=== PATIENT | female | born 1955 | race Caucasian/White ===

== ENCOUNTER 2018-10-14 15:07 | Inpatient (IN) | payer MEDICARE, OTHER ==
[~2018-10-14] VITALS: Ht 165.1 cm; Wt 93.0 kg
[~2018-10-14 15:07] MED LIST: AMOXICILLIN500 M1; CO-GESIC 5-5001 EACH PO; CYMBALTA60 MG; FLEXERIL10 MG; HYDROCODONE; MELOXICAM15 MG; NASONEX17 GM; WELLBUTRIN XL300 MG
--- OUTSIDE RECORDS SUMMARY | 2018-10-14 15:11 | XMS REPORT | Summary of Care ---
Author Author [facility] Organization [facility] Address Unknown Phone Unavailable Encounter ANGEL Lam(FIN) [id number] Date(s): 05/16/16 - 05/16/16 [facility] [address] [place] [address] 7 [phone] Discharge Disposition: Home or Self Care Attending Physician: Rodger Echeverria MD Vital Signs No data available for this section Problem List Condition Effective Dates Status Health Status Informant Anxiety(Confirmed) Active Cervical Active radiculopathy(Confir med) Cervical Active spondylosis(Confirme d) Knee Resolved injury(Confirmed) Knee pain(Confirmed) Active Neck pain(Confirmed) Active Numbness(Confirmed)1 Active Obesity(Confirmed) Active Foraminal stenosis Active of cervical region(Confirmed) Tingling(Confirmed)2 Active 1both arms 2bil arms Allergies, Adverse Reactions, Alerts Substance Reaction Severity Status NKDA Active Medications No data available for this section Results No data available for this section Immunizations No data available for this section Procedures Procedure Date Related Diagnosis Body Site Back fusion Cervical spinal fusion Repair of meniscus Social History Social History Type Response Alcohol Current, Type Liquor. Frequency: 1-2 times per month. Smoking Status Current every day smoker; Type: Cigarettes; Tobacco use per day: 10; Lives with someone who smokes; Cigarette Smoking Last 365 Days No; Reg Smoking Cessation Counseling No1 1Smoked for 30 years and still do. Always a pack or less a day Assessment and Plan No data available for this section
--- OUTSIDE RECORDS SUMMARY | 2018-10-14 15:11 | XMS REPORT | Continuity of Care Document ---
Author Author [facility] Interface Address Unknown Phone Unavailable Problems Problem Status Onset Date Classification Date Reported Comments Source M48.02 - "SPINAL STENOSIS, CERVICAL ART Active 05/02/2016 [facility] [place] M48.02,M50.20 Active 05/02/2016 [facility] Anxiety Active Problem 05/23/2016 [facility] [place] Cervical radiculopathy Active Problem 05/23/2016 [facility] [place] Cervical spondylosis Active Problem 05/23/2016 [facility] [place] Knee injury Resolved Problem 05/23/2016 [facility] [place] Knee pain Active Problem 05/23/2016 [facility] [place] Neck pain Active Problem 05/23/2016 [facility] [place] Numbness<sup>1</sup> Active Problem 05/23/2016 both arms [facility] [place] Obesity Active Problem 05/23/2016 [facility] [place] Foraminal stenosis of cervical region Active Problem 05/23/2016 [facility] [place] Tingling<sup>2</sup> Active Problem 05/23/2016 kristian arms [facility] [place] SPINAL STENOSIS, CERVICAL REGION Active [facility] Medications Medication Details Route Status Patient Instructions Ordering Provider Order Date Source neostigmine (ANES) Route: IV, Drug form: INJ, ONCE, Stop date: 05/20/16 12:00:00 CDT Inactive 05/20/2016 [facility] glycopyrrolate (ANES) Route: IV, Drug form: INJ, ONCE, Stop date: 05/20/16 12:00:00 CDT Inactive 05/20/2016 [facility] ketOROLAC (ANES) IV, ONCE Inactive 05/20/2016 [facility] ondansetron (ANES) Route: IV, Drug form: INJ, ONCE, Stop date: 05/20/16 11:52:00 CDT Inactive 05/20/2016 [facility] morphine Sulfate (ANES) Route: IV, Drug form: INJ, ONCE, Stop date: 05/20/16 11:47:00 CDT Inactive 05/20/2016 [facility] ceFAZolin (ANES) Route: IV, Drug form: INJ, ONCE, Stop date: 05/20/16 11:37:00 CDT Inactive 05/20/2016 [facility] phenylephrine (ANES) Route: IV, Drug form: INJ, ONCE, Stop date: 05/20/16 11:32:00 CDT Inactive 05/20/2016 [facility] lidocaine (ANES) Route: IV, Drug form: INJ, ONCE, Stop date: 05/20/16 11:12:00 CDT Inactive 05/20/2016 [facility] rocuronium (ANES) Route: IV, Drug form: INJ, ONCE, Stop date: 05/20/16 11:12:00 CDT Inactive 05/20/2016 [facility] propofol (ANES) Route: IV, Drug form: INJ, ONCE, Stop date: 05/20/16 11:07:00 CDT Inactive 05/20/2016 [facility] midazolam (ANES) Route: IV, Drug form: SOLN, ONCE, Stop date: 05/20/16 10:47:00 CDT Inactive 05/20/2016 [facility] fentaNYL (ANES) Route: IV, Drug form: INJ, ONCE, Stop date: 05/20/16 10:47:00 CDT Inactive 05/20/2016 [facility] LR 1000 mL INJ (ANES) Route: IV, Total Volume: 1,000, Start date: 05/20/16 10:12:00 CDT, Stop date: 05/20/16 11:12:00 CDT Inactive 05/20/2016 [facility] Naloxone 0.1 mg, 0.25 mL, Route: SUB-Q, Drug form: INJ, Q6H, Dosing Weight 91.364, kg, PRN Itching, Start date: 05/20/16 9:58:00 CDT, Stop date: 05/20/16 23:00:00 CDTNotes: Same as Narcan Inactive 05/20/2016 [facility] Meperidine 12.5 mg, 0.5 mL, Route: IVP, Drug form: INJ, Q30Min, Dosing Weight 91.364, kg, PRN Other -See Comment, For shivering, Start date: 05/20/16 9:58:00 CDT, Duration: 2 doses or times, Stop date: 05/20/16 23 :00:00 CDTNotes: (Same as: Demerol) "Use Precaution in Elderly, Seizure disorders, and Renal impairment" Inactive 05/20/2016 [facility] Albuterol 0.83 MG/ML Inhalant Solution 2.49 mg, 0.5 mL, Route: NEB, Drug form: SOLN, Q20Min, Dosing Weight 91.364, kg, PRN Wheezing, Priority: STAT, Start date: 05/20/16 9:58:00 CDT, Stop date: 05/20/16 23:00:00 CDTNotes: SEE RT DOCUMENTATION MEDICATION WASTE Product Size: 2.5 mg Product Wasted: ___ mg Inactive 05/20/2016 [facility] Diphenhydramine 12.5 mg, 0.25 mL, Route: IVP, Drug form: INJ, Q6H, Dosing Weight 91.364, kg, PRN Itching, Start date: 05/20/16 9:58:00 CDT, Stop date: 05/20/16 23:00:00 CDTNotes: (Same as: Benadryl) Inactive 05/20/2016 [facility] Promethazine 6.25 mg, 0.25 mL, Route: IVPB, ONCE, Dosing Weight 91.364, kg, PRN Nausea & Vomiting, Start date: 05/20/16 9:58:00 CDTNotes: Do not give IV push. (Same as: Phenergan) Inactive 05/20/2016 [facility] Ondansetron 4 mg, 2 mL, Route: IVP, Drug form: INJ, ONCE, Dosing Weight 91.364, kg, PRN Nausea & Vomiting, Start date: 05/20/16 9:58:00 CDTNotes: (Same as: Zofran) MEDICATION WASTE Product Size: 4 mg Product Wasted: ___ mg Inactive 05/20/2016 [facility] Morphine 4 mg, 1 mL, Route: IVP, Drug form: INJ, Q5Min, Dosing Weight 91.364, kg, PRN Pain Score 7-10, Start date: 05/20/16 9:58:00 CDT, Duration: 3 doses or times, Stop date: 05/20/16 23:00:00 CDTNotes: (Same as:MORPhine Sulfate) Inactive 05/20/2016 [facility] Flumazenil 0.2 mg, 2 mL, Route: IVP, Drug form: INJ, PRN, Dosing Weight 91.364, kg, PRN Benzodiazepine Reversal, Initial dose, Start date: 05/20/16 9:58:00 CDT, Stop date: 05/20/16 23:00:00 CDTNotes: (Same as: Romazicon) Inactive 05/20/2016 [facility] Calcium Chloride 0.0014 MEQ/ML / Potassium Chloride 0.004 MEQ/ML / Sodium Chloride 0.103 MEQ/ML / Sodium Lactate 0.028 MEQ/ML Injectable Solution 1,000 mL, Rate: 125 ml/hr, Infuse over: 8 hr, Route: IV, Dosing Weight 91.364 kg, Total Volume: 1,000, Start date: 05/20/16 9:58:00 CDT, Duration: 30 day, Stop date: 06/19/16 9:57:00 CDT Inactive 05/20/2016 [facility] Acetaminophen 1,000 mg, 100 mL, Route: IVPB, Drug form: INJ, ONCE, Dosing Weight 91.364, kg, PRN Pain Score 1-3, Start date: 05/20/16 9:58:00 CDT, Duration: 1 doses or times, Stop date: Limited # of timesNotes: In fuse over 15 minutes Do not exceed 4gm/day of acetaminophen MEDICATION WASTE Product Size: 1000 mg Product Wasted: ___ mg Inactive 05/20/2016 [facility] Labetalol 10 mg, 2 mL, Route: IVP, Drug form: INJ, Q5Min, Dosing Weight 91.364, kg, PRN Elevated BP, Start date: 05/20/16 9:58:00 CDT, Duration: 5 doses or times, Stop date: 05/20/16 23:00:00 CDTNotes: (Same as: Normodyne, Trandate) Push over 2 minutes Give bolus over 2-3 minutes. Inactive 05/20/2016 [facility] Hydralazine 10 mg, 0.5 mL, Route: IVP, Drug form: INJ, Q20Min, Dosing Weight 91.364, kg, PRN Elevated BP, Start date: 05/20/16 9:58:00 CDT, Duration: 2 doses or times, Stop date: 05/20/16 23:00:00 CDTNotes: (Same as: Apresoline) Push over 5 minutes Inactive 05/20/2016 [facility] Phenergan 25 mg, 50 mL, Route: IVPB, Drug form: SOLN, Q4H, Dosing Weight 91.364, kg, PRN Nausea & Vomiting, If N/V refractory to Zofran and Reglan, patient may receive Phenergan IVP per Dr. Rascon, Start date: 05/20/16 9:34:00 CDT, Duration: 30 day, Stop date:... Inactive 05/20/2016 [facility] Lactated Ringers 1,000 mL 1,000 mL, Rate: 100 ml/hr, Infuse over: 10 hr, Route: IV, Dosing Weight 91.364 kg, Total Volume: 1,000, Start date: 05/20/16 6:23:00 CDT, Duration: 30 day, Stop date: 06/19/16 6:22:00 CDT Inactive 05/20/2016 [facility] ceFAZolin 2 gm, 50 mL, Route: IVPB, Drug form: INJ, PRE OP, Start date: 05/20/16 5:00:00 CDT, Duration: 1 doses or times Inactive 05/20/2016 [facility] Aspirin 81 MG Enteric Coated Tablet 81 mg=1 tab, PO, Daily, # 90 tab, 3 Refill(s) No Longer Active 05/15/2016 [facility] Phentermine Hydrochloride 37.5 MG Oral Tablet 37.5 mg=1 tab, PO, Daily, # 30 tab, 0 Refill(s) Active 05/15/2016 [facility] Allergies, Adverse Reactions, Alerts Substance Category Reaction Severity Reaction type Status Date Reported Comments Source Immunizations Immunization Date Given Site Status Last Updated Comments Source Results Order Name Results Value Reference Range Date Interpretation Comments Source HEMATOLOGY WBC 10.6 K/CMM 3.7 - 10.4 05/20/2016 [facility] HEMATOLOGY RBC 4.25 M/CMM 4.20 - 5.40 05/20/2016 [facility] HEMATOLOGY MCV 90.5 fL 80.0 - 98.0 05/20/2016 [facility] MCHC 33.8 g/dL 32.0 - 36.0 05/20/2016 [facility] Hct 38.4 % 36.0 - 48.0 05/20/2016 [facility] MCH 30.6 pg 27.0 - 31.0 05/20/2016 [facility] Hgb 13.0 g/dL 12.0 - 16.0 05/20/2016 [facility] MPV 7.1 fL 7.4 - 10.4 05/20/2016 [facility] RDW 15.2 % 11.5 - 14.5 05/20/2016 [facility] Platelet 424 K/CMM 133 - 450 05/20/2016 [facility] Lymphocytes 27.7 % 20.0 - 40.0 05/20/2016 [facility] Segs 57.5 % 45.0 - 75.0 05/20/2016 [facility] Monocytes 8.1 % 2.0 - 12.0 05/20/2016 [facility] Segs-Bands # 6.1 K/CMM 1.5 - 8.1 05/20/2016 [facility] Eosinophils 6.6 % 0.0 - 4.0 05/20/2016 [facility] Basophils 0.1 % 0.0 - 1.0 05/20/2016 [facility] Eosinophils # 0.7 K/CMM 0.0 - 0.5 05/20/2016 [facility] Lymphocytes # 2.9 K/CMM 1.0 - 5.5 05/20/2016 [facility] Monocytes # 0.9 K/CMM 0.0 - 0.8 05/20/2016 [facility] Spine cervical wo contrast CT Spine cervical wo contrast CT EXAM: CT CERVICAL SPINE WITHOUT CONTRAST DATE: 05/02/2016 4:05 PM CDT INDICATION: M99.81 Foraminal stenosis of cervical region COMPARISON: None available TECHNIQUE: Volumetric acquisition of the cervical spine is obtained without contrast. 2mm axial, sagittal and coronal reconstructions are provided. DLP: 494 mGy-cm DISCUSSION: The cervical spine is well imaged from craniocervical junction through T1. No fracture, acute malalignment or other acute bony abnormality of the cervical spine is identified. No soft tissue abnormality is identified. Disc levels, spinal canal, neural foramina: Craniocervical junction: No stenosis C1-C2: No subluxation, ligamentous pannus formation, or stenosis C2-C3: Intervertebral disc height is maintained. There is left facet and uncinate hypertrophy. Central canal is patent. Neural foramina are patent. C3-C4: Severe facet of hypertrophy. 4 mm anterolisthesis of C3 relative to C4. Loss of intervertebral disc height with moderate annular pseudobulge. Central canal is narrowed to 6 mm. Neural foramina are severely narrowed. C4-C5: Severe right facet of hypertrophy. 3 mm anterolisthesis of C4 relative to C5. Loss of intervertebral disc height with moderate pseudobulge. Central canal measures 8 mm. Neural foramina are moderately narrowed. C5-C6: Loss in vertebral disc height with circumferential disc osteophyte complex. There is bilateral uncinate hypertrophy. Facets are mildly enlarged. Central canal measures 10 mm. Neural foramina are patent. C6-C7: Loss of intervertebral disc height with circumferential disc osteophyte complex. There is left greater than right facet hypertrophy. Central canal measures 9 mm. There is moderate stenosis of the neural foramina bilaterally. C7-T1: Intervertebral disc height is maintained. Posterior elements are normal. There is no stenosis. IMPRESSION: 1. Severe C3-C4 C5 facet hypertrophy was associated spondylolisthesis and spinal stenosis. 2. There is severe bilateral C3-C4 neural foramen stenosis. 3. Please see additional comments above 05/16/2016 - - Read by: Vincent Leonard MD Dictated Date/time: 05/16/16 15:30 Electronically Signed by: Vincent Leonard MD 05/16/16 17:13 FINAL REPORT [facility] BLOOD BANK RESULTS Antibody Scrn Negative (05/15/16 1:41 PM) 05/15/2016 [facility] BLOOD BANK RESULTS ABO/Rh B POS 05/15/2016 [facility] CHEM PANEL eGFR 74 mL/min/1.73m2 05/15/2016 Result Comment: The eGFR is calculated using the CKD-EPI formula. In most young, healthy individuals the eGFR will be >90 mL/min/1.73m2. The eGFR declines with age. An eGFR of 60-89 may be normal in some populations, particularly the elderly, for whom the CKD-EPI formula has not been extensively validated. Use of the eGFR is not recommended in the following populations: Individuals with unstable creatinine concentrations, including patients and those with serious co-morbid conditions. Patients with extremes in muscle mass or diet. The data above are obtained from the National Kidney Disease Education Program (NKDEP) which additionally recommends that when the eGFR is used in patients with extremes of body mass index for purposes of drug dosing, the eGFR should be multiplied by the estimated BMI. [facility] CHEM PANEL Sodium Lvl 139 meq/L 135 - 145 05/15/2016 [facility] CHEM PANEL Creatinine Lvl 0.85 mg/dL 0.50 - 1.40 05/15/2016 [facility] CHEM PANEL Chloride Lvl 105 meq/L 95 - 109 05/15/2016 [facility] CHEM PANEL Potassium Lvl 4.3 meq/L 3.5 - 5.1 05/15/2016 [facility] CHEM PANEL Calcium Lvl 9.0 mg/dL 8.5 - 10.5 05/15/2016 [facility] CHEM PANEL CO2 28 meq/L 24 - 32 05/15/2016 [facility] CHEM PANEL BUN 9 mg/dL 7 - 22 05/15/2016 [facility] CHEM PANEL Glucose Lvl 102 mg/dL 70 - 99 05/15/2016 [facility] CHEM PANEL AGAP 10.3 meq/L 10.0 - 20.0 05/15/2016 [facility] HEMATOLOGY Eosinophils # 1.0 K/CMM 0.0 - 0.5 05/15/2016 [facility] HEMATOLOGY Basophils # 0.2 K/CMM 0.0 - 0.2 05/15/2016 [facility] HEMATOLOGY Monocytes # 1.1 K/CMM 0.0 - 0.8 05/15/2016 [facility] HEMATOLOGY Lymphocytes 30.3 % 20.0 - 40.0 05/15/2016 [facility] HEMATOLOGY Segs 54.5 % 45.0 - 75.0 05/15/2016 [facility] HEMATOLOGY Eosinophils 6.4 % 0.0 - 4.0 05/15/2016 [facility] HEMATOLOGY Monocytes 7.6 % 2.0 - 12.0 05/15/2016 [facility] HEMATOLOGY Lymphocytes # 4.6 K/CMM 1.0 - 5.5 05/15/2016 [facility] HEMATOLOGY Basophils 1.2 % 0.0 - 1.0 05/15/2016 [facility] HEMATOLOGY Segs-Bands # 8.3 K/CMM 1.5 - 8.1 05/15/2016 [facility] HEMATOLOGY PTT 26.4 s 22.9 - 35.8 05/15/2016 [facility] HEMATOLOGY PT 11.4 s 12.0 - 14.7 05/15/2016 [facility] HEMATOLOGY INR 0.80 0.85 - 1.17 05/15/2016 [facility] HEMATOLOGY MPV 7.1 fL 7.4 - 10.4 05/15/2016 [facility] MCH 30.6 pg 27.0 - 31.0 05/15/2016 [facility] HEMATOLOGY RDW 15.5 % 11.5 - 14.5 05/15/2016 [facility] HEMATOLOGY MCHC 33.1 g/dL 32.0 - 36.0 05/15/2016 [facility] HEMATOLOGY Platelet 496 K/CMM 133 - 450 05/15/2016 [facility] HEMATOLOGY Hct 40.2 % 36.0 - 48.0 05/15/2016 [facility] MCV 92.5 fL 80.0 - 98.0 05/15/2016 [facility] WBC 15.1 K/CMM 3.7 - 10.4 05/15/2016 [facility] Hgb 13.3 g/dL 12.0 - 16.0 05/15/2016 [facility] RBC 4.34 M/CMM 4.20 - 5.40 05/15/2016 [facility] URINE AND STOOL Micro? Not Indicated *NA* (05/15/16 1:41 PM) 05/15/2016 [facility] URINE AND STOOL UA Leuk Est Negative (05/15/16 1:41 PM) Negative 05/15/2016 [facility] URINE AND STOOL UA Urobilinogen 0.2 EU/dL 0.1 - 1.0 05/15/2016 [facility] URINE AND STOOL UA Bili Negative *NA* (05/15/16 1:41 PM) Negative 05/15/2016 [facility] URINE AND STOOL UA Nitrite Negative (05/15/16 1:41 PM) Negative 05/15/2016 [facility] URINE AND STOOL UA Blood Negative (05/15/16 1:41 PM) Negative 05/15/2016 [facility] URINE AND STOOL UA Ketones Negative mg/dL Negative mg/dL 05/15/2016 [facility] URINE AND STOOL UA Spec Grav 1.010 <=1.030 05/15/2016 [facility] URINE AND STOOL UA pH 6.0 5.0 - 8.0 05/15/2016 [facility] URINE AND STOOL UA Color Yellow *NA* (05/15/16 1:41 PM) Yellow 05/15/2016 [facility] URINE AND STOOL UA Turbidity Clear (05/15/16 1:41 PM) Clear 05/15/2016 [facility] URINE AND STOOL UA Glucose Negative mg/dL Negative mg/dL 05/15/2016 [facility] URINE AND STOOL UA Protein Negative mg/dL Negative mg/dL 05/15/2016 [facility] Vital Signs Vital Sign Value Date Comments Source Heart Rate 86 05/20/2016 [facility] Respitory Rate 16 05/20/2016 [facility] Systolic (mm Hg) 110 05/20/2016 [facility] Diastolic (mm Hg) 65 05/20/2016 [facility] Respitory Rate 16 05/20/2016 [facility] Heart Rate 81 05/20/2016 [facility] Systolic (mm Hg) 114 05/20/2016 [facility] Diastolic (mm Hg) 63 05/20/2016 [facility] Respitory Rate 16 05/20/2016 [facility] Systolic (mm Hg) 109 05/20/2016 [facility] Diastolic (mm Hg) 57 05/20/2016 [facility] Heart Rate 77 05/20/2016 [facility] Height 165.1 cm 05/15/2016 [facility] BMI Calculated 33.52 05/15/2016 [facility] Weight 91.364 05/15/2016 [facility] Encounters Location Location Details Encounter Type Encounter Number Reason For Visit Attending Provider ADM Date DC Date Status Source [facility] [place] Out[facility] Diag Services [id number] Rodger Rascon Jr 05/16/2016 05/17/2016 [facility] [place] Out[facility] [id number] RODGER RASCON JR 05/20/2016 Active [facility] Day Surgery [id number] Rodger Rascon Jr 05/20/2016 05/20/2016 [facility] Outpatient [id number] RODGER RASCON JR 06/03/2016 [facility] Outpatient [id number] RODGER RASCON JR 06/26/2016 [facility] Outpatient [id number] RODGER RASCON JR 08/07/2016 [facility] Procedures Procedure Code Date Perfomer Comments Source Back fusion [id number] [facility] [place] Cervical spinal fusion [id number] [facility] [place] Repair of meniscus [id number] [facility] [place] Back fusion [id number] [facility] Cervical spinal fusion [id number] [facility] Repair of meniscus [id number] [facility]
--- OUTSIDE RECORDS SUMMARY | 2018-10-14 15:12 | XMS REPORT | Summary of Care ---
Author Author [facility] Organization [facility] Address Unknown Phone Unavailable Encounter ANGEL Lam(LINDA) [id number] Date(s): 05/20/16 - 05/20/16 [facility] [address] [place] [address]- Discharge Disposition: Home or Self Care Attending Physician: Rodger Echeverria MD Admitting Physician: Rodger Echeverria MD Referring Physician: Rodger Echeverria MD Vital Signs 1 2 3 Most recent to oldest [Reference Range]: 165.1 cm (05/15/16 1:07 PM) Height 110/65 mmHg (05/20/16 2:40 PM) 114/63 mmHg (05/20/16 2:10 PM) 109/57 mmHg (05/20/16 1:40 PM) Blood Pressure [90-140/60-90 mmHg] 16 BRMIN (05/20/16 2:40 PM) 16 BRMIN (05/20/16 2:10 PM) 16 BRMIN (05/20/16 1:40 PM) Respiratory Rate [14-20 BRMIN] 86 bpm (05/20/16 2:40 PM) 81 bpm (05/20/16 2:10 PM) 77 bpm (05/20/16 1:40 PM) Peripheral Pulse Rate [60-100 bpm] 91.364 kg (05/15/16 1:07 PM) Weight 33.52 m2 (05/15/16 1:07 PM) Body Mass Index Problem List Condition Effective Dates Status Health Status Informant Anxiety(Confirmed) Active Cervical Active radiculopathy(Confir med) Cervical Active spondylosis(Confirme d) Knee Resolved injury(Confirmed) Knee pain(Confirmed) Active Neck pain(Confirmed) Active Numbness(Confirmed)1 Active Obesity(Confirmed) Active Foraminal stenosis Active of cervical region(Confirmed) Tingling(Confirmed)2 Active 1both arms 2bil arms Allergies, Adverse Reactions, Alerts Substance Reaction Severity Status NKDA Active Medications ANES acetaminophen 1,000 mg, 100 mL, Route: IVPB, Drug form: INJ, ONCE, Dosing Weight 91.364, kg, P RN Pain Score 1-3, Start date: 05/20/16 9:58:00 CDT, Duration: 1 doses or times, Stop date: Limited # of times Notes: Infuse over 15 minutesDo not exceed 4gm/day of acetaminophen MEDICAT ION WASTE Product Size: 1000 mgProduct Wasted: ___ mg Start Date: 05/20/16 Stop Date: 05/20/16 Status: Discontinued ANES albuterol 0.083% inhalation solution 2.49 mg, 0.5 mL, Route: NEB, Drug form: SOLN, Q20Min, Dosing Weight 91.364, kg, PRN Wheezing, Priority: STAT, Start date: 05/20/16 9:58:00 CDT, Stop date: 05/20 23:00:00 CDT Notes: SEE RT DOCUMENTATION MEDICATION WASTE Product Size: 2.5 mgProduc t Wasted: ___ mg Start Date: 05/20/16 Stop Date: 05/20/16 Status: Discontinued ANES diphenhydrAMINE 12.5 mg, 0.25 mL, Route: IVP, Drug form: INJ, Q6H, Dosing Weight 91.364, kg, PRN Itching, Start date: 05/20/16 9:58:00 CDT, Stop date: 05/20/16 23:00:00 CDT Notes: (Same as: Benadryl) Start Date: 05/20/16 Stop Date: 05/20/16 Status: Discontinued ANES flumazenil 0.2 mg, 2 mL, Route: IVP, Drug form: INJ, PRN, Dosing Weight 91.364, kg, PRN Josh zodiazepine Reversal, Initial dose, Start date: 05/20/16 9:58:00 CDT, Stop date: 05/20/16 23:00:00 CDT Notes: (Same as: Romazicon) Start Date: 05/20/16 Stop Date: 05/20/16 Status: Discontinued ANES hydrALAZINE 10 mg, 0.5 mL, Route: IVP, Drug form: INJ, Q20Min, Dosing Weight 91.364, kg, PRN Elevated BP, Start date: 05/20/16 9:58:00 CDT, Duration: 2 doses or times, Stop date: 05/20/16 23:00:00 CDT Notes: (Same as: Apresoline)Push over 5 minutes Start Date: 05/20/16 Stop Date: 05/20/16 Status: Discontinued ANES labetalol 10 mg, 2 mL, Route: IVP, Drug form: INJ, Q5Min, Dosing Weight 91.364, kg, PRN El evated BP, Start date: 05/20/16 9:58:00 CDT, Duration: 5 doses or times, Stop da te: 05/20/16 23:00:00 CDT Notes: (Same as: Normodyne, Trandate)Push over 2 minutes Give bolus over 2-3 mi nutes. Start Date: 05/20/16 Stop Date: 05/20/16 Status: Discontinued ANES meperidine 12.5 mg, 0.5 mL, Route: IVP, Drug form: INJ, Q30Min, Dosing Weight 91.364, kg, P RN Other -See Comment, For shivering, Start date: 05/20/16 9:58:00 CDT, Duration : 2 doses or times, Stop date: 05/20/16 23:00:00 CDT Notes: (Same as: Demerol) "Use Precaution in Elderly, Seizure disorders, and Re nal impairment" Start Date: 05/20/16 Stop Date: 05/20/16 Status: Discontinued ANES morphine Sulfate 4 mg, 1 mL, Route: IVP, Drug form: INJ, Q5Min, Dosing Weight 91.364, kg, PRN Khoi n Score 7-10, Start date: 05/20/16 9:58:00 CDT, Duration: 3 doses or times, Stop date: 05/20/16 23:00:00 CDT Notes: (Same as:MORPhine Sulfate) Start Date: 05/20/16 Stop Date: 05/20/16 Status: Discontinued ANES morphine Sulfate 2 mg, 1 mL, Route: IVP, Drug form: INJ, Q5Min, Dosing Weight 91.364, kg, PRN Khoi n Score 4-6, Start date: 05/20/16 9:58:00 CDT, Duration: 5 doses or times, Stop date: 05/20/16 23:00:00 CDT Notes: (Same as:MORPhine Sulfate) Start Date: 05/20/16 Stop Date: 05/20/16 Status: Discontinued ANES naloxone 0.1 mg, 0.25 mL, Route: SUB-Q, Drug form: INJ, Q6H, Dosing Weight 91.364, kg, MN N Itching, Start date: 05/20/16 9:58:00 CDT, Stop date: 05/20/16 23:00:00 CDT Notes: Same as Narcan Start Date: 05/20/16 Stop Date: 05/20/16 Status: Discontinued ANES naloxone 0.4 mg, 1 mL, Route: IVP, Drug form: INJ, Q2MIN, Dosing Weight 91.364, kg, PRN N arcotic Reversal, Start date: 05/20/16 9:58:00 CDT, Duration: 8 doses or times, Stop date: 05/20/16 23:00:00 CDT Notes: Same as Narcan Start Date: 05/20/16 Stop Date: 05/20/16 Status: Discontinued ANES ondansetron 4 mg, 2 mL, Route: IVP, Drug form: INJ, ONCE, Dosing Weight 91.364, kg, PRN Naus ea & Vomiting, Start date: 05/20/16 9:58:00 CDT Notes: (Same as: Ethan) MEDICATION WASTE Product Size: 4 mgProduct Was gutierrez: ___ mg Start Date: 05/20/16 Stop Date: 05/20/16 Status: Discontinued ANES promethazine + sodium chloride 0.9% INJ 50 mL 6.25 mg, 0.25 mL, Route: IVPB, ONCE, Dosing Weight 91.364, kg, PRN Nausea & Vomiting, Start date: 05/20/16 9:58:00 CDT Notes: Do not give IV push. (Same as: Phenergan) Start Date: 05/20/16 Stop Date: 05/20/16 Status: Discontinued aspirin 81 mg tablet, enteric coated 81 mg=1 tab, PO, Daily, # 90 tab, 3 Refill(s) Start Date: 05/15/16 Stop Date: 05/20/16 Status: Discontinued ceFAZolin 2 gm, 50 mL, Route: IVPB, Drug form: INJ, PRE OP, Start date: 05/20/16 5:00:00 C DT, Duration: 1 doses or times Start Date: 05/20/16 Stop Date: 05/20/16 Status: Completed ceFAZolin (ANES) Route: IV, Drug form: INJ, ONCE, Stop date: 05/20/16 11:37:00 CDT Start Date: 05/20/16 Stop Date: 05/20/16 Status: Completed fentaNYL (ANES) Route: IV, Drug form: INJ, ONCE, Stop date: 05/20/16 10:47:00 CDT Start Date: 05/20/16 Stop Date: 05/20/16 Status: Completed glycopyrrolate (ANES) Route: IV, Drug form: INJ, ONCE, Stop date: 05/20/16 12:00:00 CDT Start Date: 05/20/16 Stop Date: 05/20/16 Status: Completed ketOROLAC (ANES) IV, ONCE Start Date: 05/20/16 Stop Date: 05/20/16 Status: Completed Lactated Ringers 1,000 mL 1,000 mL, Rate: 100 ml/hr, Infuse over: 10 hr, Route: IV, Dosing Weight 91.364 k g, Total Volume: 1,000, Start date: 05/20/16 6:23:00 CDT, Duration: 30 day, Stop date: 06/19/16 6:22:00 CDT Start Date: 05/20/16 Stop Date: 05/20/16 Status: Discontinued Lactated Ringers 1,000 mL 1,000 mL, Rate: 125 ml/hr, Infuse over: 8 hr, Route: IV, Dosing Weight 91.364 kg , Total Volume: 1,000, Start date: 05/20/16 9:58:00 CDT, Duration: 30 day, Stop date: 06/19/16 9:57:00 CDT Start Date: 05/20/16 Stop Date: 05/20/16 Status: Discontinued lidocaine (ANES) Route: IV, Drug form: INJ, ONCE, Stop date: 05/20/16 11:12:00 CDT Start Date: 05/20/16 Stop Date: 05/20/16 Status: Completed LR 1000 mL INJ (ANES) Route: IV, Total Volume: 1,000, Start date: 05/20/16 10:12:00 CDT, Stop date: 11:12:00 CDT Start Date: 05/20/16 Stop Date: 05/20/16 Status: Completed midazolam (ANES) Route: IV, Drug form: SOLN, ONCE, Stop date: 05/20/16 10:47:00 CDT Start Date: 05/20/16 Stop Date: 05/20/16 Status: Completed morphine Sulfate (ANES) Route: IV, Drug form: INJ, ONCE, Stop date: 05/20/16 11:47:00 CDT Start Date: 05/20/16 Stop Date: 05/20/16 Status: Completed neostigmine (ANES) Route: IV, Drug form: INJ, ONCE, Stop date: 05/20/16 12:00:00 CDT Start Date: 05/20/16 Stop Date: 05/20/16 Status: Completed ondansetron (ANES) Route: IV, Drug form: INJ, ONCE, Stop date: 05/20/16 11:52:00 CDT Start Date: 05/20/16 Stop Date: 05/20/16 Status: Completed Phenergan 25 mg, 50 mL, Route: IVPB, Drug form: SOLN, Q4H, Dosing Weight 91.364, kg, PRN N ausea & Vomiting, If N/V refractory to Zofran and Reglan, patient may receive Phenergan IVP per Dr. Mata, Start date: 05/20/16 9:34:00 CDT, Duration: 30 day, Stop date:... Start Date: 05/20/16 Stop Date: 05/20/16 Status: Discontinued phentermine 37.5 mg oral tablet 37.5 mg=1 tab, PO, Daily, # 30 tab, 0 Refill(s) Start Date: 05/15/16 Stop Date: 06/14/16 Status: Ordered phenylephrine (ANES) Route: IV, Drug form: INJ, ONCE, Stop date: 05/20/16 11:32:00 CDT Start Date: 05/20/16 Stop Date: 05/20/16 Status: Completed propofol (ANES) Route: IV, Drug form: INJ, ONCE, Stop date: 05/20/16 11:07:00 CDT Start Date: 05/20/16 Stop Date: 05/20/16 Status: Completed rocuronium (ANES) Route: IV, Drug form: INJ, ONCE, Stop date: 05/20/16 11:12:00 CDT Start Date: 05/20/16 Stop Date: 05/20/16 Status: Completed Results BLOOD BANK RESULTS Most recent to 10 21 oldest [Reference Range]: ABO/Rh B POS *Unknown* (05/15/16 1:41 PM) Antibody Scrn Negative (05/15/16 1:41 PM) ELECTROLYTES Most recent to 10 21 oldest [Reference Range]: Sodium Lvl [135-145 139 mEq/L mEq/L] (05/15/16 1:41 PM) Potassium Lvl 4.3 mEq/L [3.5-5.1 mEq/L] (05/15/16 1:41 PM) Chloride Lvl [95-109 105 mEq/L mEq/L] (05/15/16 1:41 PM) CO2 [24-32 mEq/L] 28 mEq/L (05/15/16 1:41 PM) AGAP [10.0-20.0 10.3 mEq/L mEq/L] (05/15/16 1:41 PM) CHEM PANEL Most recent to 1 oldest [Reference Range]: Creatinine Lvl 0.85 mg/dL [0.50-1.40 mg/dL] (05/15/16 1:41 PM) eGFR 74 mL/min/1.73m2 1 *NA* (05/15/16 1:41 PM) BUN [7-22 mg/dL] 9 mg/dL (05/15/16 1:41 PM) Glucose Lvl [70-99 102 mg/dL mg/dL] *HI* (05/15/16 1:41 PM) Calcium Lvl 9.0 mg/dL [8.5-10.5 mg/dL] (05/15/16 1:41 PM) 1Result Comment: The eGFR is calculated using the [...] from the National Kidney Disease Education Program ( NKDEP) which additionally recommends that when the eGFR is used in patients with extremes of body mass index for purposes of drug dosing, the eGFR should be mul tiplied by the estimated BMI. URINE AND STOOL Most recent to 1 2 oldest [Reference Range]: UA Turbidity [Clear] Clear (05/15/16 1:41 PM) UA Color [Yellow] Yellow *NA* (05/15/16 1:41 PM) UA pH [5.0-8.0] 6.0 (05/15/16 1:41 PM) UA Spec Grav 1.010 [<=1.030] (05/15/16 1:41 PM) UA Glucose [Negative Negative mg/dL mg/dL] (05/15/16 1:41 PM) UA Blood [Negative] Negative (05/15/16 1:41 PM) UA Ketones [Negative Negative mg/dL mg/dL] *NA* (05/15/16 1:41 PM) UA Protein [Negative Negative mg/dL mg/dL] (05/15/16 1:41 PM) UA Urobilinogen 0.2 EU/dL [0.1-1.0 EU/dL] (05/15/16 1:41 PM) UA Bili [Negative] Negative *NA* (05/15/16 1:41 PM) UA Leuk Est Negative [Negative] (05/15/16 1:41 PM) UA Nitrite Negative [Negative] (05/15/16 1:41 PM) Micro? Not Indicated *NA* (05/15/16 1:41 PM) HEMATOLOGY Most recent to 1 2 oldest [Reference Range]: WBC [3.7-10.4 K/CMM] 10.6 K/CMM 15.1 K/CMM *HI* *HI* (05/20/16 8:29 AM) (05/15/16 1:41 PM) RBC [4.20-5.40 4.25 M/CMM 4.34 M/CMM M/CMM] (05/20/16 8:29 AM) (05/15/16 1:41 PM) Hgb [12.0-16.0 g/dL] 13.0 g/dL 13.3 g/dL (05/20/16 8:29 AM) (05/15/16 1:41 PM) Hct [36.0-48.0 %] 38.4 % 40.2 % (05/20/16 8:29 AM) (05/15/16 1:41 PM) MCV [80.0-98.0 fL] 90.5 fL 92.5 fL (05/20/16 8:29 AM) (05/15/16 1:41 PM) MCH [27.0-31.0 pg] 30.6 pg 30.6 pg (05/20/16 8:29 AM) (05/15/16 1:41 PM) MCHC [32.0-36.0 33.8 g/dL 33.1 g/dL g/dL] (05/20/16 8:29 AM) (05/15/16 1:41 PM) RDW [11.5-14.5 %] 15.2 % 15.5 % *HI* *HI* (05/20/16 8:29 AM) (05/15/16 1:41 PM) Platelet [133-450 424 K/CMM 496 K/CMM K/CMM] (05/20/16 8:29 AM) *HI* (05/15/16 1:41 PM) MPV [7.4-10.4 fL] 7.1 fL 7.1 fL *LOW* *LOW* (05/20/16 8:29 AM) (05/15/16 1:41 PM) Segs [45.0-75.0 %] 57.5 % 54.5 % (05/20/16 8:29 AM) (05/15/16 1:41 PM) Lymphocytes 27.7 % 30.3 % [20.0-40.0 %] (05/20/16 8:29 AM) (05/15/16 1:41 PM) Monocytes [2.0-12.0 8.1 % 7.6 % %] (05/20/16 8:29 AM) (05/15/16 1:41 PM) Eosinophils [0.0-4.0 6.6 % 6.4 % %] *HI* *HI* (05/20/16 8:29 AM) (05/15/16 1:41 PM) Basophils [0.0-1.0 0.1 % 1.2 % %] (05/20/16 8:29 AM) *HI* (05/15/16 1:41 PM) Segs-Bands # 6.1 K/CMM 8.3 K/CMM [1.5-8.1 K/CMM] (05/20/16 8:29 AM) *HI* (05/15/16 1:41 PM) Lymphocytes # 2.9 K/CMM 4.6 K/CMM [1.0-5.5 K/CMM] (05/20/16 8:29 AM) (05/15/16 1:41 PM) Monocytes # [0.0-0.8 0.9 K/CMM 1.1 K/CMM K/CMM] *HI* *HI* (05/20/16 8:29 AM) (05/15/16 1:41 PM) Eosinophils # 0.7 K/CMM 1.0 K/CMM [0.0-0.5 K/CMM] *HI* *HI* (05/20/16 8:29 AM) (05/15/16 1:41 PM) Basophils # [0.0-0.2 0.2 K/CMM K/CMM] (05/15/16 1:41 PM) PT [12.0-14.7 11.4 seconds seconds] *LOW* (05/15/16 1:41 PM) INR [0.85-1.17] 0.80 *LOW* (05/15/16 1:41 PM) PTT [22.9-35.8 26.4 seconds seconds] (05/15/16 1:41 PM) Immunizations No data available for this section [...]
[2018-10-14 17:37] LABS: BASOPHILS # (AUTO) 0.1 (0.0-0.1); BASOPHILS % 0.5 % (0.0-1.0); EOSINOPHILS # (AUTO) 0.1 (0.0-0.4); EOSINOPHILS % 0.5 % (0.0-6.0); HEMATOCRIT 37.4 % (34.2-44.1); HEMOGLOBIN 12.4 g/dL (12.0-16.0); LYMPHOCYTES # (AUTO) 2.4 (1.0-3.2); LYMPHOCYTES % 15.8 % (18.0-39.1); MEAN CORPUSCULAR HEMOGLOBIN 30.2 pg (28-32); MEAN CORPUSCULAR HGB CONC 33.2 g/dL (31-35); MONOCYTES # (AUTO) 1.4 (0.2-0.8); NEUTROPHILS # (AUTO) 11.3 (2.1-6.9); NEUTROPHILS % 73.6 % (38.7-80.0); PLATELET COUNT 547 x10e3/uL (140-360); RED BLOOD COUNT 4.11 x10e6/uL (3.6-5.1); RED CELL DISTRIBUTION WIDTH 13.7 % (11.7-14.4)
[2018-10-14 17:58] LABS: ALANINE AMINOTRANSFERASE 24 IU/L (0-55); ALBUMIN 2.4 g/dL (3.5-5.0); ALBUMIN/GLOBULIN RATIO 0.4 (0.8-2.0); ALKALINE PHOSPHATASE 235 IU/L (40-150); ANION GAP 16.8 mmol/L (8-16); BLOOD UREA NITROGEN 10 mg/dL (7-26); BUN/CREATININE RATIO 13 (6-25); CALCIUM 10.3 mg/dL (8.4-10.2); CARBON DIOXIDE 25 mmol/L (22-29); CHLORIDE 94 mmol/L (98-107); CREATININE, SERUM 0.76 mg/dL (0.57-1.11); EST GLOMERULAR FILTRATION RATE > 60 ML/MIN (60-); GLUCOSE 96 mg/dL (74-118); POTASSIUM 3.8 mmol/L (3.5-5.1); SODIUM 132 mmol/L (136-145)
--- NOTE | 2018-10-14 19:08 | NUR ---
walking round with SONY Loco
--- NOTE | 2018-10-14 19:52 | Diagnostic Imaging Report ---
KNEE RIGHT THREE VIEWS - 3 views HISTORY: Pain. Right knee infection. COMPARISON: None available. FINDINGS: Bones: No acute displaced fracture. Osseous alignment is within normal limits. Joints: Severe tricompartmental degenerative changes with [id number] contact in the medial and lateral compartment. Moderate degenerative changes in the patellofemoral compartment. Moderate suprapatellar joint effusion. Soft tissues: The soft tissues appear unremarkable. IMPRESSION: Severe degenerative changes in the right knee. No evidence of osteomyelitis. Signed by: Dr. Jose Quach M.D. on 10/14/2018 7:48 PM
[2018-10-14] MEDS ORDERED: VANCOMYCIN 1GM/NS 250 ML 250 ML IV SCH (20:00)
[2018-10-14] MEDS ORDERED: MORPHINE SULFATE 2 MG/ML SYR IV PRN (20:15)
--- OUTSIDE RECORDS SUMMARY | 2018-10-14 20:23 | XMS REPORT ---
Author Author [facility] Organization [facility] Address Unknown Phone Unavailable Care Team Providers Care Clinical Rn Manager Name Role Phone Kaia CORDOVA Unavailable Unavailable Problems This patient has no known problems. Allergies, Adverse Reactions, Alerts This patient has no known allergies or adverse reactions. Medications This patient has no known medications. Results Test Description Test Time Test Comments Text Results Atomic Results Result Comments KNEE RIGHT THREE VIEWS 2018-10-14 19:48:00 [facility] [address] [address] Patient Name: SELENE CARLOS MR #: [id number] : 1955 Age/Sex: 63/F Req #: [id number] Adm Physician: Ordered by: NEAL RICARDO NP Report #: [id number] Location: ER Room/Bed: Procedure: [id number] DX/KNEE RIGHT THREE VIEWS Exam Date: 10/14/18 Exam Time: 1924 REPORT STATUS: Signed KNEE RIGHT THREE VIEWS - 3 views HISTORY: Pain. Right knee infection. COMPARISON: None available. FINDINGS: Bones: No acute displaced fracture. Osseous alignment is within normal limits. Joints: Severe tricompartmental degenerative changes with [id number] contact in the medial and lateral compartment. Moderate degenerative changes in the patellofemoral compartment. Moderate suprapatellar joint effusion. Soft tissues: The soft tissues appear unremarkable. IMPRESSION: Severe degenerative changes in the right knee. No evidence of osteomyelitis. Signed by: Dr. Don Quach M.D. on 10/14/2018 7:48 PM Dictated By: DON QUACH MD 47 Transcribed By: GE on 10/14/181947 COPY TO: NEAL RICARDO NP
[2018-10-14] MEDS: MORPHINE SULFATE INJ 4 MG/ML INJ IV PRN (20:53)
[2018-10-14] MEDS: PIPER-TAZ 3.375 GM 50 ML IV SCH (20:53)
[2018-10-14 21:30] LABS: BODY FLUID APPEARANCE CLOUDY; BODY FLUID COLOR YELLOW; BODY FLUID TYPE SYNOVIAL
[2018-10-14 21:32] LABS: RBC,BODY FLUID 1609 cells/uL; WBC,BODY FLUID 91451 cells/uL
--- NOTE | 2018-10-14 21:40 | NUR ---
Pt admitted to room 298 via stretcher. A&Ox4. Skin warm, dry. c/o right knee pain 4/10, repositioned knee. 20g IV right FA, flushed 10 ml NS. Abx therapy ordered. Pt verbalized understanding of AM procedure. Oriented to room, call neal within reach. No acute distress noted.
--- NOTE | 2018-10-14 21:43 | NUR ---
Consultation - Orthopedics Patient is a 63 year old female who presents to the ED with a history of right knee pain for several days. She states that on 10/01/18, she underwent a knee scope and PRP injection by Dr. Chacon. After the injection, her knee felt different and painful. She was placed on Clindamycin at the time and took her last dose this morning. More recently the past couple days she has had fevers and chills. She recently saw his PA today who aspirated the knee and told her to go to the emergency room. She has not been able to ambulate and has had pain with any motion of her knee. She denies pain in any other extremity PMdHx: Sciatica, Depression Allergies: NKDA SurgHx: Multiple Cervical and Lumbar Surgeries FamHx: Non-contributory SocHx: No Tob (Former), No EtoH, + Marijuana on occasion, Retired VS: T 98.5, HR 70, RR 18, BP 122/60, O2 100% NAD Right Knee - swollen, large effusion. Pain with limited range of motion Warm Motor: EHL, FHL, TA, G/S Sensation grossly intact Pulses + DP, Post tib Compartments soft Negative calf tenderness Xrays demonstrate osteoarthritis of medial and lateral tibiofemoral osteoarthritis WBC 15.38, Serum Glucose 96, ESR, CRP Pending, Coags Pending Fluid Glucose 28, 63 year old Female with possible right septic knee Right knee was cleaned and prepped and 40 cc of cloudy synovial fluid was aspirated from the knee. Aspiration was sent to the lab for cell count, crystals, culture, gram stain, and glucose assessment. Patient tolerated the procedure well with improved symptoms and the leg was wrapped in a compressive dressing Recommend broad spectrum antibiotics Follow up labs (ESR, CRP, Coags, Synovial Fluids) NPO except meds IVF while NPO WBAT Will wait for lab results to determine if septic. Patient is aware that if it is septic she will require an irrigation and debridement and antibiotics. Plan for OR as soon as possible if septic Recommend ID consult Patient and son aware and amendable to plan DO ROSS [facility]
[2018-10-14 22:00] VITALS: BP 123/60
[2018-10-14 22:26] LABS: MONO/MACROPHG,BODY FLUID 1 %; NEUTROPHILS,BODY FLUID 99 %
--- NOTE | 2018-10-14 22:28 | Diagnostic Imaging Report ---
EXAM: CHEST SINGLE (PORTABLE), AP 1 view INDICATION: Preop for right knee surgery COMPARISON: None FINDINGS: LINES/TUBES: None LUNGS: No consolidations or edema. PLEURA: No effusions or pneumothorax. HEART AND MEDIASTINUM: Normal size and contour. BONES AND SOFT TISSUES: No acute findings. IMPRESSION: No acute thoracic abnormality. Signed by: Dr. Charlotte Sethi M.D. on 10/14/2018 10:25 PM
[2018-10-14 22:31] LABS: INR 0.93; PROTHROMBIN TIME 13.3 seconds (11.9-14.5)
[2018-10-14 22:32] LABS: PARTIAL THROMBOPLASTIN TIME 33.7 seconds (23.8-35.5)
[2018-10-14] MEDS: VANCOMYCIN 1GM/NS 250 ML 250 ML IV SCH (23:00)
[2018-10-14] MEDS: SODIUM CHLORIDE 0.9% 1000ML 1,000 ML IV SCH (23:00)
[2018-10-15] VITALS (8 sets, daily range): BP systolic 106–128; BP diastolic 58–84
[2018-10-15] MEDS: PIPER-TAZ 3.375 GM 50 ML IV SCH ×4 (01:05→18:08)
[2018-10-15] MEDS: ONDANSETRON HCL INJ 2 MG/ML VIAL IV PRN ×2 (01:05→05:20)
[2018-10-15] MEDS: MORPHINE SULFATE INJ 4 MG/ML INJ IV PRN ×5 (01:05→21:30)
[2018-10-15] MEDS ORDERED: CLONAZEPAM0.5 MG PO (04:08)
[2018-10-15] MEDS ORDERED: FOLIC ACID1 MG PO (04:08)
[2018-10-15] MEDS ORDERED: ASPIR 8181 MG (04:08)
[2018-10-15] MEDS ORDERED: GABAPENTIN300 MG PO (04:08)
[2018-10-15] MEDS ORDERED: POTASSIUM CITR10 MEQ PO (04:12)
[2018-10-15 05:38] LABS: BASOPHILS # (AUTO) 0.1 (0.0-0.1); BASOPHILS % 0.5 % (0.0-1.0); EOSINOPHILS # (AUTO) 0.2 (0.0-0.4); EOSINOPHILS % 1.8 % (0.0-6.0); HEMATOCRIT 33.5 % (34.2-44.1); HEMOGLOBIN 11.1 g/dL (12.0-16.0); LYMPHOCYTES # (AUTO) 2.7 (1.0-3.2); LYMPHOCYTES % 20.9 % (18.0-39.1); MEAN CORPUSCULAR HEMOGLOBIN 30.2 pg (28-32); MEAN CORPUSCULAR HGB CONC 33.1 g/dL (31-35); MONOCYTES # (AUTO) 1.3 (0.2-0.8); MONOCYTES % 10.1 % (4.4-11.3); NEUTROPHILS # (AUTO) 8.5 (2.1-6.9); NEUTROPHILS % 66.2 % (38.7-80.0); PLATELET COUNT 449 x10e3/uL (140-360); RED BLOOD COUNT 3.68 x10e6/uL (3.6-5.1); RED CELL DISTRIBUTION WIDTH 13.9 % (11.7-14.4)
[2018-10-15 05:57] LABS: ANION GAP 13.9 mmol/L (8-16); BLOOD UREA NITROGEN 9 mg/dL (7-26); BUN/CREATININE RATIO 13 (6-25); CALCIUM 9.6 mg/dL (8.4-10.2); CARBON DIOXIDE 24 mmol/L (22-29); CHLORIDE 100 mmol/L (98-107); CREATININE, SERUM 0.69 mg/dL (0.57-1.11); EST GLOMERULAR FILTRATION RATE > 60 ML/MIN (60-); GLUCOSE 88 mg/dL (74-118); POTASSIUM 3.9 mmol/L (3.5-5.1); SODIUM 134 mmol/L (136-145)
[2018-10-15] MEDS ORDERED: BACITRACIN 50,000 UNIT VIAL ONE (06:56)
[2018-10-15] MEDS ORDERED: BUPIVACAINE 0.5%/EPI 30 ML SDV INJ ONE (07:02)
[2018-10-15] MEDS ORDERED: BUPIVACAINE HCL 0.5% INJ 30 ML VIAL INJ ONE (07:02)
--- NOTE | 2018-10-15 08:33 | NUR ---
Brief Operative Note - Orthopedics Preop diagnosis: Right Septic Knee Postop diagnosis: Right Septic Knee , Medial & Lateral Meniscal Tear, Tricompartmental Osteoarthritis Procedure: Right Knee Arthroscopic Irrigation & Debridement, Partial Medial & Lateral Meniscectomy, Partial Synovectomy Surgeon: Pretty Cheung DO Anesthesia: General, LMA Associate Professor Of Sociology(s): None Estimated Blood Loss: <5 cc Findings: Right Knee Septic Arthritis, Medial & Lateral Meniscal Tear, Tricompartmental Osteoarthritis Specimen: Synovium, Meniscal Debridement Shavings, and Synovial Fluid Condition: Stable Disposition: To PACU then floor
[2018-10-15] MEDS ORDERED: MORPHINE SULFATE INJ 4 MG/ML INJ ONE (08:36)
--- NOTE | 2018-10-15 08:43 | NUR ---
Operative Note - Orthopedics Preop diagnosis: Right Septic Knee Postop diagnosis: Right Septic Knee , Medial & Lateral Meniscal Tear, Tricompartmental Osteoarthritis Procedure: Right Knee Arthroscopic Irrigation & Debridement, Partial Medial & Lateral Meniscectomy, Partial Synovectomy Surgeon: Pretty Cheung DO Anesthesia: General, LMA Issue Clerk(s): None Estimated Blood Loss: <5 cc Findings: Right Knee Septic Arthritis, Medial & Lateral Meniscal Tear, Tricompartmental Osteoarthritis Procedure: Patient was seen in holding and identified along with right lower extremity. She was brought to the OR and in supine position underwent general anesthesia with LMA. All bony prominences were well padded. A tourniquet was applied on the right lower leg. The right lower leg was then prepped and draped in standard fashion. A timeout was performed confirming patient identity and laterality. An inferolateral incision was made and the arthroscopic trocar was introduced into the knee. Specimen was collected from the fluid that extravasated. This speciment was sent for culture. Next a diagnostic arthroscopy was performed demonstrating synovitis and significant tricompartmental osteoarthritis. The medial compartment was visualized demonstrating eburnated bone with medial meniscal tear. This was debrided to a stable border with the shaver. The medial compartment was thoroughly irrigated and debrided. The intercondylar notch was visualized demonstrating a frayed and compromised ACL along with significant synovitis. The synovitis wand frayed portions of the ACL were debrided. Next the lateral compartment was visualized demonstrating eburnated bone and a lateral meniscus tear of the anterior, body and posterior horn. The meniscus was debrided and the lateral compartment was thoroughly debrided. Attention was then brought the patellofemoral compartment. Areas of significant synovitis were debrided. After establishing hemostasis, a medium hemovac drain was introduced into the knee. The incisions were closed with nylon and the leg was cleaned. Xeroform, 4x4, ABD and an Reynold compressive dressing was applied. The patient awoke from anesthesia and was transferred to the PACU without complication Specimen: Synovium, Meniscal Debridement Shavings, and Synovial Fluid Condition: Stable Disposition: To PACU then floor
[2018-10-15] MEDS ORDERED: HYDROMORPHONE 2MG/ML 2 MG/ML ML ONE (08:55)
[2018-10-15 09:53] LABS: BASOPHILS # (AUTO) 0.1 (0.0-0.1); BASOPHILS % 0.4 % (0.0-1.0); EOSINOPHILS # (AUTO) 0.1 (0.0-0.4); EOSINOPHILS % 0.9 % (0.0-6.0); HEMATOCRIT 34.4 % (34.2-44.1); HEMOGLOBIN 11.4 g/dL (12.0-16.0); LYMPHOCYTES # (AUTO) 1.1 (1.0-3.2); LYMPHOCYTES % 7.1 % (18.0-39.1); MEAN CORPUSCULAR HEMOGLOBIN 30.6 pg (28-32); MEAN CORPUSCULAR HGB CONC 33.1 g/dL (31-35); MEAN CORPUSCULAR VOLUME 92.2 fL (81-99); MONOCYTES # (AUTO) 0.5 (0.2-0.8); MONOCYTES % 3.1 % (4.4-11.3); NEUTROPHILS # (AUTO) 14.1 (2.1-6.9); NEUTROPHILS % 87.9 % (38.7-80.0); PLATELET COUNT 449 x10e3/uL (140-360); RED BLOOD COUNT 3.73 x10e6/uL (3.6-5.1); RED CELL DISTRIBUTION WIDTH 13.9 % (11.7-14.4)
[2018-10-15] MEDS: VANCOMYCIN 1GM/NS 250 ML 250 ML IV SCH ×2 (10:00→22:45)
[2018-10-15] MEDS: SODIUM CHLORIDE 0.9% 1000ML 1,000 ML IV SCH ×2 (10:00→16:28)
[2018-10-15 10:13] LABS: ALANINE AMINOTRANSFERASE 19 IU/L (0-55); ALBUMIN/GLOBULIN RATIO 0.4 (0.8-2.0); ALKALINE PHOSPHATASE 186 IU/L (40-150); BLOOD UREA NITROGEN 11 mg/dL (7-26); BUN/CREATININE RATIO 15 (6-25); CALCIUM 9.7 mg/dL (8.4-10.2); CARBON DIOXIDE 24 mmol/L (22-29); CHLORIDE 100 mmol/L (98-107); CREATININE, SERUM 0.73 mg/dL (0.57-1.11); EST GLOMERULAR FILTRATION RATE > 60 ML/MIN (60-); GLUCOSE 107 mg/dL (74-118); SODIUM 133 mmol/L (136-145)
[2018-10-15] MEDS: ASPIRIN 325 MG TAB EC PO SCH (11:24)
--- NOTE | 2018-10-15 13:12 | Consultation ---
DATE OF CONSULTATION: INFECTIOUS DISEASE CONSULTATION REASON FOR CONSULTATION: Infected knee. HISTORY OF PRESENT ILLNESS: This is a patient who is a very pleasant 63-year-old white female. She comes in with redness and swelling and pain of her right knee. Apparently she had some type of procedure, arthroscopic procedure done a few days ago, started to have redness and swelling, went to see her orthopedic, Dr. Chacon. Then because of concern about the infection she was referred here. Patient was admitted, underwent arthroscopic procedure today with the placement of a drain. Infectious Disease was consulted. She is currently on vancomycin and Zosyn. Her laboratory data: White count 15.9, hemoglobin 11.4, her platelet of 449. Her sodium 133, potassium 4.4, creatinine 0.73. PAST MEDICAL HISTORY: Osteoarthritis, depression. PAST SURGICAL HISTORY: Arthroscopic procedure on the knee. ALLERGIES: NKA. SOCIAL HISTORY: There is no smoking, drug abuse, alcohol abuse. FAMILY HISTORY: Negative. REVIEW OF SYSTEMS HEENT: Negative. PULMONARY: Negative. CARDIAC: Negative. GENITOURINARY: Negative. SKIN: There is no rash. The patient underwent right knee arthroscopic irrigation and debridement on October 15, 2018. I was asked to see her today. PHYSICAL EXAMINATION GENERAL: She is currently alert, oriented, does not seem to be in acute distress. VITAL SIGNS: Stable. Currently afebrile. HEENT: Normocephalic. She does not appear icteric. NECK: Supple. CHEST: Clear bilaterally. HEART: S1 and S2. No S3 or S4, no murmur. ABDOMEN: Soft. Bowel sounds present. No tenderness. EXTREMITIES: No edema. IMPRESSION: Infection in the knee. Agree with vancomycin and Zosyn. Await wound cultures. Obtain sed rate, C-reactive protein. Obtain a PICC line. Will modify antibiotic after availability of cultures. Plan on 3 weeks for the antibiotic. Further recommendations to follow. Job#: [id number] LOIS
[2018-10-15] MEDS ORDERED: ONDANSETRON HCL INJ 2 MG/ML VIAL ONE (14:19)
[2018-10-15] MEDS ORDERED: PROPOFOL IV EMULSION 10 MG/ML 20 ML VIAL ONE (14:19)
[2018-10-15] MEDS ORDERED: SEVOFLURANE INHAL SOLN 250 ML PEN BTL ONE (14:19)
[2018-10-15] MEDS ORDERED: LIDOCAINE HCL 2% LOCAL INJ 5 ML SDV VIAL INJ ONE (14:19)
[2018-10-15] MEDS ORDERED: KETOROLAC TROMETHAMINE 30 MG/ML VIAL ONE (14:19)
[2018-10-15] MEDS ORDERED: DEXAMETHASONE SOD PHOS INJ 4 MG/ML VIAL ONE (14:19)
[2018-10-15] MEDS ORDERED: MIDAZOLAM HCL 2 MG/2 ML VIAL ONE (15:35)
[2018-10-15] MEDS ORDERED: FENTANYL CITRATE/PF 100MCG/2 ML INJ ONE (15:35)
--- NOTE | 2018-10-15 20:00 | History and Physical ---
The patient is a 63-year-old female who comes in with right-sided knee pain. HISTORY OF PRESENTING ILLNESS: Ms. Duyen Shrestha was in her usual state of health until the patient was given a platelet-rich plasma injection to her right knee by her pain management doctor. The patient noticed pain at that time, difficulty walking and also the patient had fever in the knee and came into emergency room with pain described as 10/10 in intensity and radiating to the back and to popliteal area. The patient was given anti-inflammatories for the pain, but the patient's pain was intense and the patient could not bear it, came into the emergency room, was diagnosed with septic knee and the patient is in here for knee washout which the patient has done with Dr. Muñiz today. PAST MEDICAL HISTORY: History of depression, history of hyperlipidemia, history of chronic pain to the low back, history of anxiety. MEDICATIONS: Medicines she takes at home are, 1. Aspirin 81 mg. 2. Bupropion 300 mg ER. 3. Clonazepam 0.5 mg at nighttime p.r.n. 4. Cyclobenzaprine 10 mg at nighttime p.r.n. 5. Fluoxetine 60 mg daily. 6. Folic acid 1 mg daily. 7. Gabapentin 300 mg daily. 8. Hydrocodone 10 per 325 b.i.d. 9. Potassium citrate 10 mEq daily. SURGICAL HISTORY: History of neck surgery. ALLERGIES: No known drug allergies. SOCIAL HISTORY: The patient is a smoker, half pack a day. No EtOH. No IV drug abuse. FAMILY HISTORY: Positive for hypertension and heart disease in the family. REVIEW OF SYSTEMS: Negative for chest pain. Positive for some fever. No nausea, vomiting, or diarrhea. No constipation. No rectal bleeding. No hematochezia. No hematemesis. No blurry vision. No diplopia either. PHYSICAL EXAMINATION VITAL SIGNS: Temperature is 96.1, pulse of, respirations of 18, blood pressure is 129/63, pulse oximetry 94% on room air. HEENT: Normocephalic, atraumatic. Pupils react to light and accommodation. CVS: S1 and S2 normal. Regular rhythm. NECK: No JVD. RESPIRATIONS: Clear to auscultation. ABDOMEN: Soft, nontender. BACK: Normal. No tenderness present. SKIN: Intact. EXTREMITIES: Right knee with severe tenderness and motor swelling initially. Currently is bandaged. NEUROVASCULAR: Normal. Alert and oriented x3 with no focal deficits noted. LABORATORY DATA: Initial white count was 15,000, hemoglobin was 12.4, hematocrit was 37.4, left shift present with 11.3 neutrophil. Chemistries: Sodium of 132, potassium is 3.8, BUN of 10, creatinine 0.76, calcium 10.3, alkaline phosphatase 235, and calcium is 10.3. Lactic acid was done and was 8.8. C-reactive protein is pending. IMAGING STUDIES: Chest x-ray shows no acute thoracic abnormalities. Knee x-ray: Severe DJD of the right knee. No evidence of osteomyelitis. ASSESSMENT: Infection of the right knee. PLAN: The patient is on Vancomycin and Zosyn. We will continue with the same medications. Await wound cultures. The patient has undergone a knee wash today, arthroscopic. The patient also has C-reactive protein done, pending. Needs a PICC line and possible antibiotic for 3 to 4 weeks. Further recommendations per clinical course. We will continue to monitor the patient along with Dr. Chambers and Dr. Muñiz. Job#: [id number]
--- NOTE | 2018-10-15 22:50 | NUR ---
Started 20g IV right AC, pt tolerated well, flushed with 10 ml NS.
[2018-10-16] VITALS (8 sets, daily range): BP systolic 106–153; BP diastolic 58–84
[2018-10-16] MEDS: MORPHINE SULFATE INJ 4 MG/ML INJ IV PRN ×3 (02:14→18:15)
[2018-10-16] MEDS: SODIUM CHLORIDE 0.9% 1000ML 1,000 ML IV SCH ×4 (04:11→20:33)
[2018-10-16] MEDS: PIPER-TAZ 3.375 GM 50 ML IV SCH ×5 (06:03→23:07)
--- NOTE | 2018-10-16 07:21 | Progress Note ---
DATE: Patient is here for right knee pain and status post wash, and on IV antibiotics. Currently, the pain is 5/10. The patient did sleep well. No complaints at this time. No chest pain. No shortness of breath. No nausea, vomiting or any diarrhea. OBJECTIVE VITAL SIGNS: Temperature is 96.6, afebrile for the last 48 hours, pulse of 86, respirations of 18, blood pressure is 115/72, pulse oximetry 99% on room air. HEENT: Normocephalic and atraumatic. Pupils reactive to light and accommodation. CV: S1 and S2 normal. Regular rate and rhythm. ABDOMEN: Nontender and nondistended. EXTREMITIES: Right lower extremity bandaged. Positive for drain. Draining serosanguineous fluid. No swelling noted in the right lower extremities. MEDICATIONS: She is on: 1. Zosyn. 2. Fluids. 3. Sodium chloride 125 mL an hour. 4. Morphine sulfate 4 mg q.4 h. 5. Vancomycin 1 g q.12 h. 6. Aspirin 325 mg. 7. Zofran 4 mg. LABORATORY VALUES: Gram stain and culture are pending in the body fluids. The patient's blood culture has no growth in the last 24-48 hours. ASSESSMENT: Right knee infection. Will continue with vancomycin and Zosyn. The patient has a drain in place. Will continue monitoring it. C-reactive protein has been obtained. The patient will get a PICC line today. Will also continue with antibiotics. Further recommendations per clinical course. The patient will need about 3-4 weeks of antibiotics as per infectious disease, and possible discharge with intravenous antibiotics and follow up as an outpatient. Job#: [id number] [place]
--- NOTE | 2018-10-16 07:26 | Progress Note ---
DATE: ADDENDUM The patient's white count today was 15.99, hemoglobin of 11.4, hematocrit of 34.4 with a left shift. Neutrophil count of 87.9. Chemistry: The patient's sodium is 133, potassium 4, BUN of 11, creatinine 0.73. Alkaline phosphatase was 186, and C-reactive protein is pending. Sed rate was 83. Job#: [id number] SHERINE
--- NOTE | 2018-10-16 07:32 | NUR ---
PATIENT IN BED RESTING WITH NO RESPIRATORY DISTRESS. JOSE R WRAP DRESSING INTACT TO RIGHT KNEE WITH CLOSE WOUND SUCTION IN PLACE. BED IN LOWER POSITION, CALL LIGHT AT REACH.
[2018-10-16] MEDS: ASPIRIN 325 MG TAB EC PO SCH (09:25)
--- NOTE | 2018-10-16 11:39 | NUR ---
PATIENT AMBULATED IN HALLWAY WITH PHYSICAL THERAPY, NO RESPIRATORY DISTRESS OBSERVED. WILL CLOSELY MONITOR.
[2018-10-16] MEDS: VANCOMYCIN 1GM/NS 250 ML 250 ML IV SCH ×2 (11:40→21:10)
--- NOTE | 2018-10-16 14:25 | NUR ---
Met with patient and discussed order for home iv antibiotics. She agrees with this plan and signed choice letter, copy given to her. CM contacted [facility] lia[facility] Marlin Hagen [phone]. Faxed clinical [phone]. Marlin called later to state they received all clinical, will also set up home health, and have contacted pt who has agreed to pay $144 co-pay and $15.00/week for supplies. Confirmed this with pt. PICC line placed. Gave pt the contact number to [facility] and suggested to her that she contact them when she is discharged, just to be sure they are aware. [facility] phone: [phone] fax: [phone] Marlin: [phone]
--- NOTE | 2018-10-16 15:16 | Diagnostic Imaging Report ---
EXAMINATION: CHEST XRAY LINE PLACEMENT INDICATION: Status post PICC placement. COMPARISON: Chest radiograph 10/14/18. FINDINGS: TUBES and LINES: Status post interval placement of right sided PICC which terminates in the expected location of the lower SVC. LUNGS: Lungs are moderately inflated. There is no evidence of pneumonia or pulmonary edema. Linear subsegmental atelectasis in the right mid lung and patchy left basilar atelectasis. PLEURA: No pleural effusion or pneumothorax. HEART AND MEDIASTINUM: The cardiomediastinal silhouette is unremarkable. BONES AND SOFT TISSUES: No acute osseous lesion. Soft tissues are unremarkable. UPPER ABDOMEN: No free air under the diaphragm. IMPRESSION: Status post interval placement of right sided PICC which terminates in the expected location of the lower SVC. No evidence of pneumothorax. Signed by: Dr. Deysi Murrieta MD on 10/16/2018 3:13 PM
--- NOTE | 2018-10-16 16:45 | NUR ---
PATIENT OUT OF BED TO CHAIR TALKING TO FAMILY MEMBERS VISITING. ALL PERSONAL ITEMS CLOSE TO PATIENT. CALL LIGHT AT REACH.
--- NOTE | 2018-10-16 17:51 | NUR ---
PROGRESS NOTE - ORTHOPEDICS Patient seen and examined, feeling much better. Pain controlled. Has been able to ambulate. Denies any recent fevers or chills. VS T 96.7, HR 81, RR 18, BP 106/69, O2 97% Right Knee - Dressing clean, dry and intact, drain in place Motor: EHL, FHL, TA, G/S Sensation grossly intact Pulses: + DP, Post tib Compartments soft Negative calf tenderness WBC 15.99, Hgb 11.4, Hct 34.4, Plt 449 CRP from 10/14/18 204.3 Cultures pending Drain output 45 ml 63 year old F with Right Septic Knee s/p Arthroscopic I&D POD #1 Continue Antibiotics as per ID Analgesics DVT Prophylaxis PT - WBAT Plan to DC drain when output near 0 Follow up cultures DO ROSS [facility]
--- NOTE | 2018-10-16 19:05 | NUR ---
RECEIVED PT IN BED WATCHING TV. NO S/S OF RESP DISTRESS. NOTED JSOE R WRAP TO RIGHT KNEE INTACT WITH HEMOVAC DRAINING BLOOD RED FLUID. INSTRUCTED TO CALL FOR ASSISTANCE. PT VERBALIZED UNDERSTANDING. REFUSES BED ALARM. WALKER AVAILABLE IN PT ROOM.
--- NOTE | 2018-10-16 20:49 | NUR ---
PT REQUESTING SLEEP MEDICATION. SPOKE WITH DR. KATZ COVERING FOR DR. HAN. OK TO GIVE AMBIEN.
[2018-10-16] MEDS ORDERED: ZOLPIDEM TARTRATE 5 MG TAB PO PRN (21:00)
[2018-10-17] VITALS (8 sets, daily range): BP systolic 116–139; BP diastolic 59–70
[2018-10-17] MEDS: SODIUM CHLORIDE 0.9% 1000ML 1,000 ML IV SCH ×2 (04:53→18:45)
[2018-10-17] MEDS: PIPER-TAZ 3.375 GM 50 ML IV SCH ×4 (05:04→23:45)
[2018-10-17 05:38] LABS: BASOPHILS # (AUTO) 0.1 (0.0-0.1); BASOPHILS % 0.5 % (0.0-1.0); EOSINOPHILS # (AUTO) 0.5 (0.0-0.4); EOSINOPHILS % 4.1 % (0.0-6.0); HEMATOCRIT 30.8 % (34.2-44.1); LYMPHOCYTES # (AUTO) 3.2 (1.0-3.2); LYMPHOCYTES % 24.7 % (18.0-39.1); MEAN CORPUSCULAR HEMOGLOBIN 30.4 pg (28-32); MEAN CORPUSCULAR HGB CONC 32.5 g/dL (31-35); MEAN CORPUSCULAR VOLUME 93.6 fL (81-99); MONOCYTES # (AUTO) 0.8 (0.2-0.8); MONOCYTES % 6.5 % (4.4-11.3); NEUTROPHILS # (AUTO) 8.2 (2.1-6.9); NEUTROPHILS % 63.9 % (38.7-80.0); PLATELET COUNT 547 x10e3/uL (140-360); RED BLOOD COUNT 3.29 x10e6/uL (3.6-5.1); RED CELL DISTRIBUTION WIDTH 13.9 % (11.7-14.4)
[2018-10-17 05:59] LABS: ANION GAP 12.2 mmol/L (8-16); BLOOD UREA NITROGEN 10 mg/dL (7-26); BUN/CREATININE RATIO 13 (6-25); CARBON DIOXIDE 23 mmol/L (22-29); CHLORIDE 107 mmol/L (98-107); CREATININE, SERUM 0.76 mg/dL (0.57-1.11); EST GLOMERULAR FILTRATION RATE > 60 ML/MIN (60-); GLUCOSE 77 mg/dL (74-118); POTASSIUM 4.2 mmol/L (3.5-5.1); SODIUM 138 mmol/L (136-145)
[2018-10-17] MEDS: MORPHINE SULFATE INJ 4 MG/ML INJ IV PRN ×2 (06:40→16:50)
--- NOTE | 2018-10-17 07:30 | NUR ---
PATIENT IN BED RESTING WITH EYES CLOSED, NO RESPIRATORY DISTRESS OBSERVED. DRESSING INTACT TO RIGHT KNEE. CALL LIGHT AT REACH.
--- NOTE | 2018-10-17 08:07 | NUR ---
NOTIFIED SERGIO ZELAYA THAT HOME IV ANTIBIOTICS ARE SET UP. HE STATED PT CAN DC FROM ID STANDPOINT.
[2018-10-17] MEDS: ASPIRIN 325 MG TAB EC PO SCH (09:38)
--- NOTE | 2018-10-17 10:29 | NUR ---
PROGRESS NOTE - ORTHOPEDICS Patient seen & examined resting comfortably at bedside. Patient states she feels a little worse today however she has been able to ambulate and move her knee which has slowly improved. She states she feels a little febrile overnight, but denies chills. T 97.1, HR 85, RR 20, BP 127/62, O2 96% Right Knee - Dressing clean dry and intact Incisions - sutures in place no erythema Drain in place - synovial fluid with small clumbs of sanginous and possible purulent versus fibrinous drainage Knee - no erythema, increased warmth - decreased size of effusion - mild Decreased pain with passive range of motion Motor: EHL, FHL, TA, G/S Sensation grossly intact Pulses + DP, Post tib Compartments soft Negative calf tenderness Drain output 50 cc WBC 12.8, Hgb 10.0, Hc 30.8, Plt 547 10/14 Aspiration culture Coag Neg Staph - sensitivities pending 10/15 OR Culture Coag Neg Staph - sensitivities pending 63 year old F with Right Septic Knee s/p I&D POD #2 Continue Antibiotics , pending sensitivities as per ID Analgesics PRN DVT Prophylaxis PT - WBAT Plan to DC drain when output close to 0 per shift Dressings changed If drain output continues to increase, and patient's inflammatory markers increase and symptoms worsen, she may benefit from a repeat I&D. At this time, she states she feels mildly febrile but objectively she looks better. The increase in drain output warrants the drain to remain in the knee. If she feels better tomorrow and drain output decreases can continue course, however if drain output increases and inflammatory markers increase the next two days then potential repeat I&D on Friday. Patient aware and amendable to plan.
[2018-10-17] MEDS: VANCOMYCIN 1GM/NS 250 ML 250 ML IV SCH ×2 (10:45→22:00)
--- NOTE | 2018-10-17 12:05 | NUR ---
PATIENT SITTING UP IN BED EATING LUNCH, NO DIFFICULTY SWALLOWING OBSERVED. REQUESTED AND RECEIVED A CUP OF ICE. BED IN LOWER POSITION, CALL LIGHT AT REACH.
[2018-10-17] MEDS: ONDANSETRON HCL INJ 2 MG/ML VIAL IV PRN (17:20)
[2018-10-17] MEDS: ENOXAPARIN 30 MG/0.3 ML SYR SC SCH (17:22)
--- NOTE | 2018-10-17 19:10 | NUR ---
RECEIVED PT IN BED WATCHING TV. NO S/S OF RESP DISTRESS. NOTED JOSE R WRAP TO RIGHT KNEE INTACT WITH HEMOVAC DRAINING BLOOD RED FLUID. INSTRUCTED TO CALL FOR ASSISTANCE. PT VERBALIZED UNDERSTANDING. WALKER AVAILABLE IN ROOM.
[2018-10-18] VITALS (9 sets, daily range): BP systolic 123–131; BP diastolic 56–82
[2018-10-18] MEDS: SODIUM CHLORIDE 0.9% 1000ML 1,000 ML IV SCH ×2 (00:06→13:24)
[2018-10-18] MEDS: ONDANSETRON HCL INJ 2 MG/ML VIAL IV PRN (04:38)
[2018-10-18] MEDS: MORPHINE SULFATE INJ 4 MG/ML INJ IV PRN ×3 (04:39→21:57)
[2018-10-18] MEDS: PIPER-TAZ 3.375 GM 50 ML IV SCH ×4 (05:00→21:48)
--- NOTE | 2018-10-18 07:25 | NUR ---
PATIENT ASSISTED TO THE RESTROOM AND BACK TO BED. ALL PERSONAL ITEMS CLOSE TO PATIENT. CALL LIGHT AT REACH.
[2018-10-18] MEDS: ASPIRIN 325 MG TAB EC PO SCH (09:04)
--- NOTE | 2018-10-18 11:00 | NUR ---
CLOSE WOUND SUCTION TUBE EMPTIED WITH 50CC OF SEROSANGUINEOUS FLUID REMOVED. IN BED WITH CALL LIGHT AT REACH
[2018-10-18 12:02] LABS: BASOPHILS # (AUTO) 0.1 (0.0-0.1); BASOPHILS % 0.5 % (0.0-1.0); EOSINOPHILS # (AUTO) 0.4 (0.0-0.4); EOSINOPHILS % 3.8 % (0.0-6.0); HEMATOCRIT 29.8 % (34.2-44.1); HEMOGLOBIN 9.7 g/dL (12.0-16.0); LYMPHOCYTES # (AUTO) 2.9 (1.0-3.2); LYMPHOCYTES % 26.1 % (18.0-39.1); MEAN CORPUSCULAR HEMOGLOBIN 30.7 pg (28-32); MEAN CORPUSCULAR HGB CONC 32.6 g/dL (31-35); MEAN CORPUSCULAR VOLUME 94.3 fL (81-99); MONOCYTES % 9.5 % (4.4-11.3); NEUTROPHILS # (AUTO) 6.5 (2.1-6.9); NEUTROPHILS % 59.8 % (38.7-80.0); PLATELET COUNT 565 x10e3/uL (140-360); RED BLOOD COUNT 3.16 x10e6/uL (3.6-5.1)
--- NOTE | 2018-10-18 12:04 | NUR ---
PROGRESS NOTES - ORTHOPEDICS Patient seen and examined and feeling better today. Denies any fevers or chills and pain tolerable with analgesics. T 97.3, HR 84, RR 18, BP 123/56, O2 96% Right knee - dressing clean, dry and intact, Drain in place - 50 over 24hr shift, clean synovial fluid with some sanginous drainage Sutures in place, Effusion mild - incision healing well No pain with PROM Motor + EHL, FHL, TA, G/S Sensation grossly intact Pulses + DP, Post tib Compartments soft Negative calf tenderness Labs: CBC Pending Cx: S. lugdenesis 63 year old F s/p Right Knee I&D Drain discontinued and dressing changed Antibiotics as per ID Analgesics PRN DVT Prophylaxis PT - WBAT Follow up labs If WBC trending down, patient orthopedically stable for discharge with plan for follow up in 1 week in office. May take off dressing in 3 days and cover with bandaids. Patient aware and amendable to plan. All questions answered.
[2018-10-18 12:14] LABS: ALANINE AMINOTRANSFERASE 16 IU/L (0-55); ALBUMIN 1.8 g/dL (3.5-5.0); ALBUMIN/GLOBULIN RATIO 0.4 (0.8-2.0); ALKALINE PHOSPHATASE 144 IU/L (40-150); ANION GAP 12.9 mmol/L (8-16); BLOOD UREA NITROGEN 7 mg/dL (7-26); BUN/CREATININE RATIO 9 (6-25); CALCIUM 8.8 mg/dL (8.4-10.2); CARBON DIOXIDE 23 mmol/L (22-29); CHLORIDE 106 mmol/L (98-107); CREATININE, SERUM 0.79 mg/dL (0.57-1.11); EST GLOMERULAR FILTRATION RATE > 60 ML/MIN (60-); GLUCOSE 84 mg/dL (74-118); POTASSIUM 3.9 mmol/L (3.5-5.1); SODIUM 138 mmol/L (136-145)
--- NOTE | 2018-10-18 13:15 | NUR ---
SPOKE WITH DR ANCA ZELAYA REGARDING ABNORMAL VANC TROUGH. NEW ORDER RECEIVED.
--- NOTE | 2018-10-18 16:34 | NUR ---
ORTHOPEDIST IN TO SEE PATIENT, CLOSE WOUND SUCTION TUBE REMOVED. JOSE R WARP TO AREA. IN BED WITH CALL LIGHT AT REACH.
[2018-10-18] MEDS: ENOXAPARIN 30 MG/0.3 ML SYR SC SCH (17:34)
--- NOTE | 2018-10-18 19:00 | NUR ---
RECEIVED PT IN BED WITH DAUGHTER AT BEDSIDE. NO S/S OF RESP DISTRESS. DENIES PAIN AT THIS TIME. NOTED JOSE R WRAP TO R KNEE INTACT, CLEAN, AND DRY. CALL LIGHT WITHIN REACH AND INSTRUCTED TO CALL FOR ASSISTANCE.
[2018-10-18] MEDS ORDERED: VANCOMYCIN 1GM/NS 250 ML 250 ML IV SCH (20:00)
--- NOTE | 2018-10-18 21:57 | NUR ---
PT C/O OF PAIN TO R KNEE RATING 7/10. GIVEN PRN MORPHINE.
[2018-10-19] VITALS: BP 130/83
--- NOTE | 2018-10-19 00:45 | NUR ---
PT IN BED RESTING WITH TV ON. NO C/O PAIN AT THIS TIME. NO S/S OF RESP DISTRESS. CALL LIGHT WITHIN REACH, BED LOCKED IN THE LOWEST POSITION.
[2018-10-19 04:00] VITALS: BP 146/72
--- NOTE | 2018-10-19 04:23 | NUR ---
PT IN BED APPEARS TO BE RESTING. NO S/S OF RESP DISTRESS. CALL LIGHT WITHIN REACH, BED LOCKED IN THE LOWEST POSITION.
[2018-10-19] MEDS: PIPER-TAZ 3.375 GM 50 ML IV SCH (05:17)
[2018-10-19] MEDS: MORPHINE SULFATE INJ 4 MG/ML INJ IV PRN (05:22)
[2018-10-19] MEDS: ONDANSETRON HCL INJ 2 MG/ML VIAL IV PRN (05:22)
[2018-10-19] MEDS: SODIUM CHLORIDE 0.9% 1000ML 1,000 ML IV SCH (05:38)
--- NOTE | 2018-10-19 07:25 | Progress Note ---
DATE: Patient is here for right knee pain and right knee cellulitis. Patient is currently having some chills that started this evening. The patient continues to have some feeling of fatigue, increased more than other days. OBJECTIVE VITAL SIGNS: Temperature is 98.6, pulse of 96, blood pressure is 146/72, pulse oximetry 98% on oxygen. CV: S1 and S2 normal. Regular rate and rhythm. LUNGS: Clear to auscultation bilaterally. ABDOMEN: Nontender and nondistended. EXTREMITIES: Right lower extremity bandaged. Positive for drainage tube too. LABORATORY VALUES: From yesterday, white count is 10.91 down from 12.8, hemoglobin 9.7, hematocrit 28.8. Chemistry: Sodium is 138, potassium 3.9. C-reactive protein is still pending. Vancomycin trough on October 17, 2018, was 21.5. ASSESSMENT: Right knee cellulitis. Continue with antibiotics at this time. The patient has a PICC line in. Can be discharged. Vancomycin will be monitored by trough. Also, continue with Zosyn. The patient can be discharged home on PICC line. Will check her CBC and CMP today. Can be discharged home with PICC line and IV antibiotics at home if labs are normal. Job#: [id number] SHERINE
--- NOTE | 2018-10-19 07:35 | NUR ---
PT UP IN BED NO DISTRESS NTOED,DENIES PAIN,DRSG TO RT LEG CD& I
[2018-10-19] MEDS: ASPIRIN 325 MG TAB EC PO SCH (09:00)
--- NOTE | 2018-10-19 10:22 | NUR ---
HENRI spoke to Marlin with [facility] and verified that IV abx is set up. She stated that everything is good to go, just pending discharge. HENRI informed her that pt will be discharging today. Gave Marlin updated contact information for pt cell [phone]. Marlin stated they will set up nursing thru [facility]. IMM letter delivered and explained to pt. Signed copy placed in chart. Copy to pt. HENRI informed SONY Rasmussen that home IV abx is set up. [facility] phone: [phone] fax: [phone] Marlin: [phone] Addendum: 10/19/18 at 1049 by Tara Chacon CM Marlin nesbitt CM Home Health set up with [facility] [address] [place] [address] Spoke with Leila, who stated they will able to see pt today. Home health contact information given to pt.
--- NOTE | 2018-10-19 10:50 | NUR ---
Spoke to NATHALIE Mares with infectious disease. He states he wants pt to go home on Vancomycin dose that she is on here, which is Vancomycin 1gm q24hr. Need labs sent to Dr. Cahmbers's office on Friday. Updated order faxed to [facility] at [phone]. Spoke with Marlin with [facility] and informed her of new order.
--- NOTE | 2018-10-19 12:55 | NUR ---
PT DISCHARGED HOME .PICC LINE IN PLACE AND FLUSHED,TRANSPORTED TO [facility] VIA W/C
== END 2018-10-19 12:55 | disposition home health service (06) | DRG 872 ==
LOC: ER 15:07 → ERHOLD 20:19 → MED/SURG3 21:54
PROVIDERS: ADMIT Family Medicine; ATTEND Family Medicine
PROC: 0S9C4ZX Drainage of Right Knee Joint, Percutaneous Endoscopic Approach, Diagnostic (ICD-10-PCS; principal; 2018-10-15 07:30)
PROC: 02HV33Z Insertion of Infusion Device into Superior Vena Cava, Percutaneous Approach (ICD-10-PCS; 2018-10-16)
DX: A41.9 Sepsis, unspecified organism (principal); M00.9 Pyogenic arthritis, unspecified; F32.9 Major depressive disorder, single episode, unspecified
CPT/HCPCS: 36415; 36569; 71045; 80048; 80053; 80202; 82945; 83605; 85025; 85610; 85651; 85730; 86140; 87040; 87070; 87071; 87075; 87186; 87205; 88112; 89051; 89060; 93005; 93971; 96361; 97139; 99284; J1100; J1650; J1885; J2001; J2250; J2270; J2405; J2543; J3370; J7030

== ENCOUNTER 2018-11-18 17:10 | Outpatient (RCR) | payer MEDICARE, OTHER ==
[~2018-11-18 17:10] MED LIST changes: +ASPIR 8181 MG; +CLONAZEPAM0.5 MG PO; +FOLIC ACID1 MG PO; +GABAPENTIN300 MG PO; +POTASSIUM CITR10 MEQ PO
== END 2018-11-19 ==
LOC: PT 17:10
PROVIDERS: ATTEND Orthopaedic Surgery
DX: M00.861 Arthritis due to other bacteria, right knee (principal); M22.2X1 Patellofemoral disorders, right knee; M25.561 Pain in right knee; M25.461 Effusion, right knee; M25.661 Stiffness of right knee, not elsewhere classified; R26.89 Other abnormalities of gait and mobility

== ENCOUNTER 2018-12-14 15:00 | Outpatient (RCR) | payer MEDICARE, OTHER | END 2018-12-17 | LOC: PT 15:00 | PROVIDERS: ATTEND Orthopaedic Surgery | DX: M00.861 Arthritis due to other bacteria, right knee (principal); M17.11 Unilateral primary osteoarthritis, right knee; M94.261 Chondromalacia, right knee; M25.561 Pain in right knee; R26.89 Other abnormalities of gait and mobility; M62.81 Muscle weakness (generalized); R26.2 Difficulty in walking, not elsewhere classified | CPT/HCPCS: 97139 ==

== ENCOUNTER 2019-01-14 13:53 | Outpatient (RCR) | payer MEDICARE, OTHER | END 2019-01-17 | LOC: PT 13:53 | PROVIDERS: ATTEND Orthopaedic Surgery | DX: M00.861 Arthritis due to other bacteria, right knee (principal); M94.261 Chondromalacia, right knee; M25.561 Pain in right knee; R26.2 Difficulty in walking, not elsewhere classified; M62.81 Muscle weakness (generalized) | CPT/HCPCS: 97139 ==

== ENCOUNTER → 2019-02-16 | Outpatient (RCR) | payer MEDICARE, OTHER | LOC: PT 01-19 14:03 | PROVIDERS: ATTEND Orthopaedic Surgery | DX: M25.561 Pain in right knee (principal); M22.2X1 Patellofemoral disorders, right knee; M25.461 Effusion, right knee; M25.661 Stiffness of right knee, not elsewhere classified; R26.89 Other abnormalities of gait and mobility | CPT/HCPCS: 97139 ==

== ENCOUNTER 2019-02-18 14:09 | Outpatient (RCR) | payer MEDICARE, OTHER | END 2019-03-19 | LOC: PT 14:09 | PROVIDERS: ATTEND Orthopaedic Surgery | DX: M00.861 Arthritis due to other bacteria, right knee (principal); M25.561 Pain in right knee; M25.661 Stiffness of right knee, not elsewhere classified; M25.461 Effusion, right knee; M22.2X1 Patellofemoral disorders, right knee; R26.89 Other abnormalities of gait and mobility ==

== ENCOUNTER 2019-06-18 11:00 | Outpatient (RCR) | payer MEDICARE, OTHER | END 2019-06-19 | LOC: PT 11:00 | PROVIDERS: ATTEND Orthopaedic Surgery | DX: Z96.651 Presence of right artificial knee joint (principal); M17.11 Unilateral primary osteoarthritis, right knee; M25.561 Pain in right knee; M25.661 Stiffness of right knee, not elsewhere classified; M62.81 Muscle weakness (generalized); R26.2 Difficulty in walking, not elsewhere classified ==

== ENCOUNTER 2019-07-16 09:00 | Outpatient (RCR) | payer MEDICARE, OTHER | END 2019-07-19 | LOC: PT 09:00 | PROVIDERS: ATTEND Orthopaedic Surgery | DX: M17.11 Unilateral primary osteoarthritis, right knee (principal) | CPT/HCPCS: 97139 ==

== ENCOUNTER 2019-08-18 14:00 | Outpatient (RCR) | payer MEDICARE, OTHER | END 2019-08-19 | LOC: PT 14:00 | PROVIDERS: ATTEND Orthopaedic Surgery | DX: Z96.651 Presence of right artificial knee joint (principal); M17.11 Unilateral primary osteoarthritis, right knee; M25.561 Pain in right knee; M62.81 Muscle weakness (generalized); R26.2 Difficulty in walking, not elsewhere classified; M25.661 Stiffness of right knee, not elsewhere classified ==

== ENCOUNTER 2019-09-14 14:00 | Outpatient (RCR) | payer MEDICARE, OTHER | END 2019-09-18 | LOC: PT 14:00 | PROVIDERS: ATTEND Orthopaedic Surgery | DX: M17.11 Unilateral primary osteoarthritis, right knee (principal); Z96.651 Presence of right artificial knee joint ==

== ENCOUNTER 2020-12-14 15:10 | Outpatient (RCR) | payer MEDICARE, OTHER | END 2020-12-17 | LOC: OT 15:10 | PROVIDERS: ATTEND Orthopaedic Surgery | DX: S52.571A Other intraarticular fracture of lower end of right radius, initial encounter for closed fracture (principal); M66.241 Spontaneous rupture of extensor tendons, right hand ==

== ENCOUNTER 2021-01-09 14:00 | Outpatient (RCR) | payer MEDICARE, OTHER | END 2021-01-17 | LOC: OT 14:00 | PROVIDERS: ATTEND Orthopaedic Surgery | DX: S52.571A Other intraarticular fracture of lower end of right radius, initial encounter for closed fracture (principal); M66.241 Spontaneous rupture of extensor tendons, right hand ==

== ENCOUNTER → 2021-04-18 | Outpatient (RCR) | payer MEDICARE, OTHER | LOC: PT 15:04 | PROVIDERS: ATTEND Student in an Organized Health Care Education/Training Program | DX: R26.81 Unsteadiness on feet (principal) ==

== ENCOUNTER 2021-05-18 13:00 | Outpatient (RCR) | payer MEDICARE, OTHER | END 2021-05-19 | LOC: PT 13:00 | PROVIDERS: ATTEND Student in an Organized Health Care Education/Training Program | DX: R26.81 Unsteadiness on feet (principal) ==

== ENCOUNTER 2021-06-15 14:00 | Outpatient (RCR) | payer MEDICARE, OTHER | END 2021-06-19 | LOC: PT 14:00 | PROVIDERS: ATTEND Student in an Organized Health Care Education/Training Program | DX: R26.81 Unsteadiness on feet (principal); M62.81 Muscle weakness (generalized); M54.42 Lumbago with sciatica, left side | CPT/HCPCS: 97139 ==

== ENCOUNTER 2021-08-16 16:26 | Emergency (ER) | payer MEDICARE, OTHER ==
[~2021-08-16] VITALS: Ht 165.1 cm; Wt 93.0 kg
[2021-08-16] MEDS ORDERED: KETOROLAC TROMETHAMINE 30 MG/ML VIAL IM STA (16:43)
[2021-08-16] MEDS ORDERED: OXYCODONE/ACETAMINOPHEN 5-325 1 EACH TABLET PO STA (16:43)
[2021-08-16] MEDS ORDERED: CYCLOBENZAPRINE HCL 10 MG TAB PO ONE (16:45)
[2021-08-16 21:00] VITALS: BP 114/85
== END 2021-08-16 21:02 | disposition home or self-care (01) ==
LOC: ER 16:53
DX: M54.2 Cervicalgia (principal); M54.9 Dorsalgia, unspecified; G89.29 Other chronic pain; F41.9 Anxiety disorder, unspecified
CPT/HCPCS: 72050; 99284; J1885

== ENCOUNTER 2022-01-25 22:03 | Inpatient (IN) | payer MEDICARE, OTHER ==
[~2022-01-25] VITALS: Ht 165.1 cm; Wt 81.9 kg
[2022-01-25] MEDS: CEFEPIME 1 GM in SODIUM CHLORIDE 0.9% 50ML 50 ML IV SCH (00:15)
[2022-01-25] MEDS ORDERED: Vancomycin IV 1 GM in SODIUM CHLORIDE 0.9% 250ML 250 ML IV STA (23:29)
[2022-01-25] MEDS ORDERED: ACETAMINOPHEN 1000 MG/100 ML IV STA (23:39)
[2022-01-25 23:42] LABS: BASOPHILS # (AUTO) 0.2 (0.0-0.1); BASOPHILS % 0.5 % (0.0-1.0); EOSINOPHILS # (AUTO) 0.2 (0.0-0.4); EOSINOPHILS % 0.6 % (0.0-6.0); HEMATOCRIT 44.1 % (34.2-44.1); HEMOGLOBIN 14.8 g/dL (12.0-16.0); LYMPHOCYTES # (AUTO) 1.8 (1.0-3.2); LYMPHOCYTES % 5.2 % (18.0-39.1); MEAN CORPUSCULAR HEMOGLOBIN 26.8 pg (28-32); MEAN CORPUSCULAR HGB CONC 33.6 g/dL (31-35); MEAN CORPUSCULAR VOLUME 79.7 fL (81-99); MONOCYTES # (AUTO) 3.5 (0.2-0.8); MONOCYTES % 10.2 % (4.4-11.3); NEUTROPHILS # (AUTO) 28.1 (2.1-6.9); NEUTROPHILS % 81.4 % (38.7-80.0); PLATELET COUNT 314 x10e3/uL (140-360); RED BLOOD COUNT 5.53 x10e6/uL (3.6-5.1); RED CELL DISTRIBUTION WIDTH 18.5 % (11.7-14.4)
[2022-01-25 23:49] LABS: AMPHETAMINES SCREEN,URINE NEGATIVE (NEGATIVE); PHENCYCLIDINE SCREEN,URINE NEGATIVE (NEGATIVE)
[2022-01-25 23:50] LABS: BENZODIAZEPINES SCREEN,URINE NEGATIVE (NEGATIVE)
[2022-01-25 23:51] LABS: CLARITY,URINE CLOUDY (CLEAR); COLOR,URINE AMBER (YELLOW); KETONES,URINE TRACE (NEGATIVE); LEUKOCYTE ESTERASE ,URINE NEGATIVE (NEGATIVE); NITRITE,URINE NEGATIVE (NEGATIVE); PROTEIN,URINE DIPSTICK 2+ (NEGATIVE); URINE UROBILINOGEN 1 mg/dL (0.2 - 1)
[2022-01-25 23:53] LABS: INR 1.22; PROTHROMBIN TIME 16.5 seconds (11.9-14.5)
[2022-01-25] MEDS ORDERED: ACETAMINOPHEN 1000 MG/100 ML 100 ML IV ONE (23:53)
[2022-01-25] MEDS ORDERED: OXYCODONE HCL5 MG PO (23:56)
[2022-01-25] MEDS ORDERED: PREDNISONE10 MG PO (23:56)
[2022-01-25] MEDS ORDERED: CYCLOBENZAPRINE10 MG PO (23:56)
[2022-01-25] MEDS ORDERED: LEXAPRO10 MG PO (23:56)
[2022-01-26] VITALS (25 sets, daily range): BP systolic 81–169; BP diastolic 36–131
[2022-01-26 00:01] LABS: BACTERIA,URINE MANY /HPF; EPITHELIAL CELLS,URINE FEW /LPF; WBC,URINE (MAN) 0-5 /HPF (0-5)
[2022-01-26 00:02] LABS: SALICYLATE < 5.0 mg/dL (0-30)
[2022-01-26 00:03] LABS: ALBUMIN 2.5 g/dL (3.5-5.0); ALBUMIN/GLOBULIN RATIO 0.4 (0.8-2.0); ANION GAP 21.8 mmol/L (8-16); CREATININE, SERUM 1.28 mg/dL (0.57-1.11); POTASSIUM 3.8 mmol/L (3.5-5.1)
[2022-01-26 00:04] LABS: CALCIUM 10.4 mg/dL (8.4-10.2)
[2022-01-26] MEDS ORDERED: SODIUM CHLORIDE 0.9% 1000ML 1,000 ML IV SCH ×2 (00:15→00:30)
[2022-01-26] MEDS ORDERED: SODIUM CHLORIDE 0.9% 1000ML 1,000 ML ONE (00:17)
[2022-01-26] MEDS ORDERED: LACTATED RINGER'S 1,000 ML INJ ONE ×2 (00:30→08:45)
[2022-01-26] MEDS ORDERED: ASPIRIN 300 MG SUPP PR STA (01:08)
[2022-01-26 01:58] LABS: ABG HCO3 17 mmol/L (22-26); ABG PCO2 27 mmHg (35-45); ABG PO2 58 mmHg (80-105); ABG TCO2 18
[2022-01-26] MEDS ORDERED: FUROSEMIDE INJ 10 MG/ML 2 ML VIAL IV ONE (02:00)
[2022-01-26 02:35] LABS: MAGNESIUM 2.5 MG/DL (1.3-2.1); PHOSPHORUS 3.7 MG/DL (2.3-4.7)
[2022-01-26] MEDS ORDERED: ACYCLOVIR SODIUM INJ 500 MG in SODIUM CHLORIDE 0.9% 100 ML 100 ML IV SCH (08:45)
[2022-01-26] MEDS: ASPIRIN 81 MG CHEW TAB PO SCH (09:00)
[2022-01-26] MEDS: Ampicillin INJ 2 GM in SODIUM CHLORIDE 0.9% 100 ML IV SCH ×3 (09:00→19:56)
[2022-01-26] MEDS: CEFEPIME 1 GM in SODIUM CHLORIDE 0.9% 50ML 50 ML IV SCH (09:29)
[2022-01-26] MEDS ORDERED: HYDRALAZINE HCL 20 MG/ML VIAL IV PRN (09:45)
[2022-01-26] MEDS ORDERED: METOPROLOL TARTRATE INJ 1 MG/ML VIAL IV PRN (09:45)
[2022-01-26 10:01] LABS: BASOPHILS # (AUTO) 0.2 (0.0-0.1); BASOPHILS % 0.5 % (0.0-1.0); HEMATOCRIT 40.5 % (34.2-44.1); HEMOGLOBIN 13.3 g/dL (12.0-16.0); LYMPHOCYTES # (AUTO) 2.3 (1.0-3.2); LYMPHOCYTES % 6.6 % (18.0-39.1); MEAN CORPUSCULAR HEMOGLOBIN 27.1 pg (28-32); MEAN CORPUSCULAR HGB CONC 32.8 g/dL (31-35); MEAN CORPUSCULAR VOLUME 82.5 fL (81-99); MONOCYTES # (AUTO) 2.6 (0.2-0.8); MONOCYTES % 7.4 % (4.4-11.3); NEUTROPHILS # (AUTO) 28.5 (2.1-6.9); NEUTROPHILS % 82.3 % (38.7-80.0); PLATELET COUNT 312 x10e3/uL (140-360); RED BLOOD COUNT 4.91 x10e6/uL (3.6-5.1); RED CELL DISTRIBUTION WIDTH 19.2 % (11.7-14.4)
[2022-01-26] MEDS ORDERED: HYDRALAZINE HCL 20 MG/ML VIAL ONE (10:15)
[2022-01-26 12:02] LABS: BAND NEUTROPHILS % (MANUAL) 1 %; LYMPHOCYTES % (MANUAL) 8 % (19-48); MONOCYTES % (MANUAL) 12 % (3.4-9.0); NEUTROPHILS % (MANUAL) 79 % (40-74); PLATELET ESTIMATE ADEQUATE; PLATELET MORPHOLOGY COMMENT NORMAL; RBC MORPHOLOGY COMMENT NORMAL
[2022-01-26 12:09] LABS: ALBUMIN 2.1 g/dL (3.5-5.0); ALBUMIN/GLOBULIN RATIO 0.4 (0.8-2.0); ANION GAP 16.7 mmol/L (8-16); CALCIUM 9.2 mg/dL (8.4-10.2); CREATININE, SERUM 1.15 mg/dL (0.57-1.11); POTASSIUM 3.7 mmol/L (3.5-5.1)
[2022-01-26] MEDS ORDERED: ACETAMINOPHEN 1000 MG/100 ML IV STA (12:44)
[2022-01-26] MEDS: ACETAMINOPHEN 1000 MG/100 ML IV PRN (13:10)
[2022-01-26 13:41] LABS: ABG HCO3 23 mmol/L (22-26); ABG PCO2 30 mmHg (35-45); ABG PH 7.49 (7.35-7.45); ABG PO2 62 mmHg (80-105); ABG TCO2 23
[2022-01-26] MEDS: Vancomycin IV 1 GM in SODIUM CHLORIDE 0.9% 250ML 250 ML IV SCH (14:09)
[2022-01-26] MEDS ORDERED: LORAZEPAM INJ 2 MG/ML VIAL IV PRN (14:45)
[2022-01-26] MEDS ORDERED: PROPOFOL IV EMULSION 10MG/ML 100 ML IV SCH (15:00)
[2022-01-26] MEDS: PROPOFOL IV EMULSION 10MG/ML 100 ML IV PRN ×2 (15:25→23:50)
[2022-01-26] MEDS ORDERED: SUCCINYLCHOLINE CHLORIDE 20 MG/ML 10ML VIAL ONE (15:59)
[2022-01-26] MEDS ORDERED: VERAPAMIL HCL 2.5 MG/ML 2 ML VIAL ONE (15:59)
[2022-01-26] MEDS ORDERED: ETOMIDATE 2 MG/ML 10 ML INJ IV ONE (15:59)
[2022-01-26] MEDS: NOREPINEPHRINE 8 MG/D5W 250 ML 250 ML IV SCH (16:30)
[2022-01-26] MEDS ORDERED: ENOXAPARIN INJ 80 MG/0.8 ML SYR SC SCH (17:00)
[2022-01-26 17:22] LABS: APPEARANCE,CSF HAZY (CLEAR)
[2022-01-26 17:23] LABS: COLOR,CSF XANTHOCHROMIC (COLORLESS); TUBE NUMBER 3
[2022-01-26 17:33] LABS: ABG HCO3 23 mmol/L (22-26); ABG PCO2 32 mmHg (35-45); ABG PH 7.47 (7.35-7.45); ABG PO2 110 mmHg (80-105); ABG TCO2 24
[2022-01-26 17:35] LABS: GLUCOSE,CSF < 5 MG/DL (40-70)
[2022-01-26 18:39] LABS: LYMPHOCYTES,CSF 7 % (40-80); MONOCYTES,CSF 14 %; NEUTROPHILS,CSF 79 % (0-6)
[2022-01-26 18:44] LABS: WHITE BLOOD CELL,CSF 416 cells/uL (0-5)
[2022-01-26] MEDS: DEXAMETHASONE SOD PHOS INJ 4 MG/ML SDV IV SCH (19:04)
[2022-01-26] MEDS: ACYCLOVIR SODIUM INJ 500 MG in SODIUM CHLORIDE 0.9% 100 ML 100 ML IV SCH (19:04)
[2022-01-26] MEDS: CEFTRIAXONE 2 GM in SODIUM CHLORIDE 0.9% 100 ML IV SCH (21:13)
[2022-01-26] MEDS ORDERED: SODIUM CHLORIDE 0.9% 100 ML ONE (21:20)
[2022-01-27] VITALS (28 sets, daily range): BP systolic 108–169; BP diastolic 61–99
[2022-01-27] MEDS: DEXAMETHASONE SOD PHOS INJ 4 MG/ML SDV IV SCH ×4 (00:55→18:48)
[2022-01-27] MEDS: Ampicillin INJ 2 GM in SODIUM CHLORIDE 0.9% 100 ML IV SCH ×4 (00:59→18:48)
[2022-01-27] MEDS: ACETAMINOPHEN 1000 MG/100 ML IV PRN ×3 (01:31→18:45)
[2022-01-27] MEDS: ACYCLOVIR SODIUM INJ 500 MG in SODIUM CHLORIDE 0.9% 100 ML 100 ML IV SCH ×3 (02:15→18:48)
[2022-01-27 05:59] LABS: BASOPHILS # (AUTO) 0.2 (0.0-0.1); BASOPHILS % 0.4 % (0.0-1.0); HEMATOCRIT 40.1 % (34.2-44.1); HEMOGLOBIN 13.9 g/dL (12.0-16.0); LYMPHOCYTES # (AUTO) 1.9 (1.0-3.2); LYMPHOCYTES % 4.9 % (18.0-39.1); MEAN CORPUSCULAR HEMOGLOBIN 27.1 pg (28-32); MEAN CORPUSCULAR HGB CONC 34.7 g/dL (31-35); MEAN CORPUSCULAR VOLUME 78.3 fL (81-99); MONOCYTES # (AUTO) 1.1 (0.2-0.8); MONOCYTES % 2.8 % (4.4-11.3); NEUTROPHILS # (AUTO) 34.1 (2.1-6.9); NEUTROPHILS % 90.4 % (38.7-80.0); PLATELET COUNT 236 x10e3/uL (140-360); RED BLOOD COUNT 5.12 x10e6/uL (3.6-5.1)
[2022-01-27 06:28] LABS: ALBUMIN 1.8 g/dL (3.5-5.0); ALBUMIN/GLOBULIN RATIO 0.4 (0.8-2.0); ANION GAP 13.8 mmol/L (8-16); CALCIUM 9.2 mg/dL (8.4-10.2); CREATININE, SERUM 1.17 mg/dL (0.57-1.11); POTASSIUM 3.8 mmol/L (3.5-5.1)
[2022-01-27] MEDS: PROPOFOL IV EMULSION 10MG/ML 100 ML IV PRN ×2 (08:00→18:28)
[2022-01-27] MEDS ORDERED: SODIUM CHLORIDE 0.9% 250ML 250 ML ONE (08:11)
[2022-01-27] MEDS ORDERED: SODIUM CHLORIDE 0.9% 100 ML ONE (08:21)
[2022-01-27] MEDS: ASPIRIN 81 MG CHEW TAB PO SCH (08:25)
[2022-01-27] MEDS: Vancomycin IV 1 GM in SODIUM CHLORIDE 0.9% 250ML 250 ML IV SCH (08:25)
[2022-01-27 08:56] LABS: BAND NEUTROPHILS % (MANUAL) 2 %; LYMPHOCYTES % (MANUAL) 3 % (19-48); METAMYELOCYTES % (MANUAL) 1 % (0-0); NEUTROPHILS % (MANUAL) 94 % (40-74)
[2022-01-27 08:57] LABS: PLATELET ESTIMATE ADEQUATE; PLATELET MORPHOLOGY COMMENT FEW LARGE; SMUDGE CELLS FEW; TARGET CELLS FEW
[2022-01-27 09:02] LABS: ABG HCO3 28 mmol/L (22-26); ABG PCO2 37 mmHg (35-45); ABG PH 7.49 (7.35-7.45); ABG PO2 153 mmHg (80-105); ABG TCO2 29
[2022-01-27] MEDS: CEFTRIAXONE 2 GM in SODIUM CHLORIDE 0.9% 100 ML IV SCH ×2 (10:05→21:19)
[2022-01-27] MEDS: LACTATED RINGER'S 1,000 ML INJ SCH (15:32)
[2022-01-28] VITALS (47 sets, daily range): BP systolic 77–148; BP diastolic 54–95
[2022-01-28] MEDS: ACETAMINOPHEN 1000 MG/100 ML IV PRN ×2 (00:30→12:30)
[2022-01-28] MEDS: DEXAMETHASONE SOD PHOS INJ 4 MG/ML SDV IV SCH ×5 (00:34→23:56)
[2022-01-28] MEDS: Ampicillin INJ 2 GM in SODIUM CHLORIDE 0.9% 100 ML IV SCH ×2 (00:36→06:00)
[2022-01-28] MEDS ORDERED: IBUPROFEN 800MG/ 200ML 800 MG in SODIUM CHLORIDE 0.9% 250ML 250 ML IV PRN (01:45)
[2022-01-28] MEDS: ACYCLOVIR SODIUM INJ 500 MG in SODIUM CHLORIDE 0.9% 100 ML 100 ML IV SCH ×3 (02:33→17:37)
[2022-01-28] MEDS: PROPOFOL IV EMULSION 10MG/ML 100 ML IV PRN (03:00)
[2022-01-28 05:43] LABS: BASOPHILS # (AUTO) 0.2 (0.0-0.1); BASOPHILS % 0.4 % (0.0-1.0); HEMATOCRIT 39.4 % (34.2-44.1); HEMOGLOBIN 13.2 g/dL (12.0-16.0); LYMPHOCYTES % 7.2 % (18.0-39.1); MEAN CORPUSCULAR HEMOGLOBIN 26.8 pg (28-32); MEAN CORPUSCULAR HGB CONC 33.5 g/dL (31-35); MEAN CORPUSCULAR VOLUME 80.1 fL (81-99); MONOCYTES % 2.5 % (4.4-11.3); NEUTROPHILS # (AUTO) 36.7 (2.1-6.9); NEUTROPHILS % 87.6 % (38.7-80.0); PLATELET COUNT 218 x10e3/uL (140-360); RED BLOOD COUNT 4.92 x10e6/uL (3.6-5.1); RED CELL DISTRIBUTION WIDTH 18.5 % (11.7-14.4)
[2022-01-28] MEDS: LACTATED RINGER'S 1,000 ML INJ SCH (06:00)
[2022-01-28 06:07] LABS: ALBUMIN 1.6 g/dL (3.5-5.0); ALBUMIN/GLOBULIN RATIO 0.4 (0.8-2.0); ANION GAP 12.7 mmol/L (8-16); CALCIUM 8.6 mg/dL (8.4-10.2); CREATININE, SERUM 1.03 mg/dL (0.57-1.11); POTASSIUM 3.7 mmol/L (3.5-5.1)
[2022-01-28] MEDS ORDERED: IBUPROFEN 800MG/ 200ML 200 ML IV PRN (07:00)
[2022-01-28 07:30] LABS: ABG HCO3 29 mmol/L (22-26); ABG PCO2 38 mmHg (35-45); ABG PH 7.49 (7.35-7.45); ABG PO2 112 mmHg (80-105); ABG TCO2 30
[2022-01-28 08:37] LABS: LYMPHOCYTES % (MANUAL) 3 % (19-48); MONOCYTES % (MANUAL) 4 % (3.4-9.0); NEUTROPHILS % (MANUAL) 93 % (40-74); PLATELET ESTIMATE ADEQUATE; PLATELET MORPHOLOGY COMMENT NORMAL; RBC MORPHOLOGY COMMENT NORMAL
[2022-01-28] MEDS: ASPIRIN 81 MG CHEW TAB PO SCH (08:52)
[2022-01-28] MEDS: CEFTRIAXONE 2 GM in SODIUM CHLORIDE 0.9% 100 ML IV SCH ×2 (08:52→20:42)
[2022-01-28] MEDS: DEXMEDETOMIDINE 400MCG/NS100ML 100 ML IV PRN ×2 (09:03→20:53)
[2022-01-28] MEDS: SODIUM CHLORIDE 0.45% 1,000 ML IV SCH ×2 (13:12→23:55)
[2022-01-28] MEDS: Vancomycin IV 1 GM in SODIUM CHLORIDE 0.9% 250ML 250 ML IV SCH ×2 (13:38→21:56)
[2022-01-28] MEDS: NOREPINEPHRINE 8 MG/D5W 250 ML 250 ML IV SCH ×2 (16:30→20:42)
[2022-01-28] MEDS: LORAZEPAM INJ 2 MG/ML VIAL IV PRN (18:34)
[2022-01-29] VITALS (86 sets, daily range): BP systolic 89–158; BP diastolic 57–99
[2022-01-29] MEDS: ACYCLOVIR SODIUM INJ 500 MG in SODIUM CHLORIDE 0.9% 100 ML 100 ML IV SCH ×2 (02:17→11:24)
[2022-01-29] MEDS: DEXMEDETOMIDINE 400MCG/NS100ML 100 ML IV PRN ×3 (04:15→16:17)
[2022-01-29] MEDS: LORAZEPAM INJ 2 MG/ML VIAL IV PRN ×5 (04:58→23:11)
[2022-01-29] MEDS: DEXAMETHASONE SOD PHOS INJ 4 MG/ML SDV IV SCH ×2 (05:40→12:00)
[2022-01-29 06:06] LABS: BASOPHILS % 0.1 % (0.0-1.0); HEMATOCRIT 37.8 % (34.2-44.1); HEMOGLOBIN 12.5 g/dL (12.0-16.0); LYMPHOCYTES # (AUTO) 2.4 (1.0-3.2); LYMPHOCYTES % 4.4 % (18.0-39.1); MEAN CORPUSCULAR HEMOGLOBIN 26.8 pg (28-32); MEAN CORPUSCULAR HGB CONC 33.1 g/dL (31-35); MEAN CORPUSCULAR VOLUME 81.1 fL (81-99); MONOCYTES # (AUTO) 1.3 (0.2-0.8); MONOCYTES % 2.3 % (4.4-11.3); NEUTROPHILS # (AUTO) 48.5 (2.1-6.9); NEUTROPHILS % 88.8 % (38.7-80.0); PLATELET COUNT 211 x10e3/uL (140-360); RED BLOOD COUNT 4.66 x10e6/uL (3.6-5.1); RED CELL DISTRIBUTION WIDTH 18.9 % (11.7-14.4)
[2022-01-29 06:34] LABS: ALBUMIN 1.5 g/dL (3.5-5.0); ALBUMIN/GLOBULIN RATIO 0.4 (0.8-2.0); ANION GAP 10.7 mmol/L (8-16); CALCIUM 7.8 mg/dL (8.4-10.2); CREATININE, SERUM 0.8 mg/dL (0.57-1.11); POTASSIUM 3.7 mmol/L (3.5-5.1)
[2022-01-29] MEDS ORDERED: ACETAMINOPHEN 325 MG TAB PO PRN (07:45)
[2022-01-29 08:11] LABS: ABG HCO3 25 mmol/L (22-26); ABG PCO2 32 mmHg (35-45); ABG PH 7.49 (7.35-7.45); ABG PO2 87 mmHg (80-105)
[2022-01-29 08:12] LABS: ABG TCO2 26
[2022-01-29 08:17] LABS: BAND NEUTROPHILS % (MANUAL) 1 %; LYMPHOCYTES % (MANUAL) 4 % (19-48); MONOCYTES % (MANUAL) 3 % (3.4-9.0); NEUTROPHILS % (MANUAL) 92 % (40-74); NUCLEATED RED BLOOD CELLS 1
[2022-01-29 08:18] LABS: PLATELET ESTIMATE ADEQUATE; PLATELET MORPHOLOGY COMMENT NORMAL
[2022-01-29 08:19] LABS: ANISOCYTOSIS SLIGHT; RBC MORPHOLOGY COMMENT NORMAL
[2022-01-29] MEDS ORDERED: Vancomycin IV 1 GM VIAL ONE (08:53)
[2022-01-29] MEDS: CEFTRIAXONE 2 GM in SODIUM CHLORIDE 0.9% 100 ML IV SCH ×2 (08:53→20:48)
[2022-01-29] MEDS: ASPIRIN 81 MG CHEW TAB PO SCH (08:54)
[2022-01-29] MEDS: Vancomycin IV 1 GM in SODIUM CHLORIDE 0.9% 250ML 250 ML IV SCH (09:32)
[2022-01-29] MEDS ORDERED: DEXTROSE 5% 1,000 ML IV ONE (13:45)
[2022-01-29] MEDS: NOREPINEPHRINE 8 MG/D5W 250 ML 250 ML IV SCH (16:30)
[2022-01-29] MEDS: ENOXAPARIN SOD INJ 40 MG/0.4 ML SYR SC SCH (16:32)
[2022-01-29] MEDS: PROPOFOL IV EMULSION 10MG/ML 100 ML IV SCH (23:10)
[2022-01-30] VITALS (53 sets, daily range): BP systolic 81–134; BP diastolic 26–84
[2022-01-30] MEDS: PROPOFOL IV EMULSION 10MG/ML 100 ML IV SCH ×3 (02:47→18:48)
[2022-01-30 06:18] LABS: BASOPHILS % 0.1 % (0.0-1.0); HEMATOCRIT 34.7 % (34.2-44.1); HEMOGLOBIN 11.6 g/dL (12.0-16.0); LYMPHOCYTES # (AUTO) 2.9 (1.0-3.2); MEAN CORPUSCULAR HGB CONC 33.4 g/dL (31-35); MEAN CORPUSCULAR VOLUME 80.7 fL (81-99); MONOCYTES # (AUTO) 1.5 (0.2-0.8); MONOCYTES % 3.1 % (4.4-11.3); NEUTROPHILS # (AUTO) 42.2 (2.1-6.9); NEUTROPHILS % 86.3 % (38.7-80.0); PLATELET COUNT 188 x10e3/uL (140-360); RED CELL DISTRIBUTION WIDTH 18.8 % (11.7-14.4)
[2022-01-30 06:42] LABS: MAGNESIUM 2.2 MG/DL (1.3-2.1); PHOSPHORUS 2.7 MG/DL (2.3-4.7)
[2022-01-30 06:43] LABS: ALBUMIN 1.5 g/dL (3.5-5.0); ALBUMIN/GLOBULIN RATIO 0.4 (0.8-2.0); ANION GAP 10.8 mmol/L (8-16); CALCIUM 7.6 mg/dL (8.4-10.2); CREATININE, SERUM 0.68 mg/dL (0.57-1.11); POTASSIUM 3.8 mmol/L (3.5-5.1)
[2022-01-30 08:06] LABS: ABG HCO3 24 mmol/L (22-26); ABG PCO2 31 mmHg (35-45); ABG PH 7.51 (7.35-7.45); ABG PO2 79 mmHg (80-105); ABG TCO2 25
[2022-01-30] MEDS: CEFTRIAXONE 2 GM in SODIUM CHLORIDE 0.9% 100 ML IV SCH ×2 (09:36→21:00)
[2022-01-30] MEDS: ASPIRIN 81 MG CHEW TAB PO SCH (09:36)
[2022-01-30] MEDS: LORAZEPAM INJ 2 MG/ML VIAL IV PRN (10:50)
[2022-01-30 11:04] LABS: ANISOCYTOSIS SLIGHT; LYMPHOCYTES % (MANUAL) 6 % (19-48); MONOCYTES % (MANUAL) 2 % (3.4-9.0); NEUTROPHILS % (MANUAL) 92 % (40-74); NUCLEATED RED BLOOD CELLS 2; PLATELET ESTIMATE ADEQUATE; PLATELET MORPHOLOGY COMMENT NORMAL; RBC MORPHOLOGY COMMENT NORMAL
[2022-01-30] MEDS: IBUPROFEN 800MG/ 200ML 200 ML IV PRN (14:39)
[2022-01-30] MEDS ORDERED: SODIUM CHLORIDE 0.9% 1000ML 1,000 ML IV ONE (16:45)
[2022-01-30] MEDS: ENOXAPARIN SOD INJ 40 MG/0.4 ML SYR SC SCH (20:10)
[2022-01-30] MEDS ORDERED: IOPAMIDOL 370 MG/ML 100 ML INFUS..BTL INJ ONE (23:45)
[2022-01-30] MEDS ORDERED: SODIUM CHLORIDE 0.9% 50ML 50 ML ONE (23:45)
[2022-01-31] VITALS (67 sets, daily range): BP systolic 46–150; BP diastolic 11–90
[2022-01-31] MEDS: PROPOFOL IV EMULSION 10MG/ML 100 ML IV SCH ×2 (01:34→07:14)
[2022-01-31 06:02] LABS: BASOPHILS # (AUTO) 0.2 (0.0-0.1); BASOPHILS % 0.4 % (0.0-1.0); EOSINOPHILS # (AUTO) 0.1 (0.0-0.4); EOSINOPHILS % 0.1 % (0.0-6.0); HEMATOCRIT 36.6 % (34.2-44.1); HEMOGLOBIN 12.2 g/dL (12.0-16.0); LYMPHOCYTES # (AUTO) 4.6 (1.0-3.2); LYMPHOCYTES % 9.5 % (18.0-39.1); MEAN CORPUSCULAR HEMOGLOBIN 26.9 pg (28-32); MEAN CORPUSCULAR HGB CONC 33.3 g/dL (31-35); MEAN CORPUSCULAR VOLUME 80.8 fL (81-99); MONOCYTES # (AUTO) 1.7 (0.2-0.8); MONOCYTES % 3.5 % (4.4-11.3); NEUTROPHILS # (AUTO) 39.5 (2.1-6.9); NEUTROPHILS % 81.5 % (38.7-80.0); PLATELET COUNT 201 x10e3/uL (140-360); RED BLOOD COUNT 4.53 x10e6/uL (3.6-5.1); RED CELL DISTRIBUTION WIDTH 18.9 % (11.7-14.4)
[2022-01-31 06:23] LABS: ALBUMIN 1.6 g/dL (3.5-5.0); ALBUMIN/GLOBULIN RATIO 0.4 (0.8-2.0); CALCIUM 7.5 mg/dL (8.4-10.2); CREATININE, SERUM 0.7 mg/dL (0.57-1.11)
[2022-01-31 08:37] LABS: BAND NEUTROPHILS % (MANUAL) 1 %; LYMPHOCYTES % (MANUAL) 12 % (19-48); MONOCYTES % (MANUAL) 1 % (3.4-9.0); NEUTROPHILS % (MANUAL) 86 % (40-74); NUCLEATED RED BLOOD CELLS 1
[2022-01-31 08:38] LABS: ANISOCYTOSIS SLIGHT; HYPOCHROMASIA SLIGHT; PLATELET ESTIMATE ADEQUATE; PLATELET MORPHOLOGY COMMENT NORMAL; RBC MORPHOLOGY COMMENT NORMAL
[2022-01-31 08:40] LABS: ABG HCO3 22 mmol/L (22-26); ABG PCO2 30 mmHg (35-45); ABG PH 7.48 (7.35-7.45); ABG PO2 84 mmHg (80-105); ABG TCO2 23
[2022-01-31] MEDS ORDERED: DEXMEDETOMIDINE 400MCG/NS100ML 100 ML IV PRN (08:45)
[2022-01-31] MEDS: ASPIRIN 81 MG CHEW TAB PO SCH (09:41)
[2022-01-31] MEDS: CEFTRIAXONE 2 GM in SODIUM CHLORIDE 0.9% 100 ML IV SCH (09:41)
[2022-01-31] MEDS: LORAZEPAM INJ 2 MG/ML VIAL IV PRN (12:35)
[2022-01-31] MEDS: NOREPINEPHRINE 8 MG/D5W 250 ML 250 ML IV SCH ×2 (13:07→23:39)
[2022-01-31 13:23] LABS: ABG HCO3 20 mmol/L (22-26); ABG PCO2 23 mmHg (35-45); ABG PH 7.53 (7.35-7.45); ABG PO2 246 mmHg (80-105); ABG TCO2 20
[2022-01-31] MEDS ORDERED: CALCIUM CHLORIDE 10% 1.36 MEQ/ML 10ML SYR IV ONE (13:33)
[2022-01-31] MEDS ORDERED: EPINEPHRINE HCL SYRINGE ONE (13:33)
[2022-01-31] MEDS ORDERED: ATROPINE SULFATE 0.1 MG/ML 10ML SYR ONE (13:33)
[2022-01-31] MEDS ORDERED: SODIUM BICARBONATE 8.4% INJ 50 ML SYR ONE (13:33)
[2022-01-31] MEDS ORDERED: LACTATED RINGER'S 1,000 ML INJ ONE (13:45)
[2022-01-31] MEDS: IBUPROFEN 800MG/ 200ML 200 ML IV PRN (16:00)
[2022-01-31] MEDS: ENOXAPARIN SOD INJ 40 MG/0.4 ML SYR SC SCH (16:53)
[2022-01-31] MEDS ORDERED: FENTANYL 2000MCG/NS 250 250 ML IV PRN (18:30)
[2022-01-31] MEDS ORDERED: PROPOFOL IV EMULSION 10MG/ML 100 ML IV SCH (19:30)
[2022-01-31] MEDS ORDERED: ALBUMIN 25% 25GM 100ML 0.25 GM/ML BTL IV ONE (19:30)
[2022-01-31] MEDS ORDERED: VASOPRESSIN 60 UNIT in DEXTROSE 5% 50ML 57 ML IV PRN (19:30)
[2022-01-31] MEDS ORDERED: PROPOFOL IV EMULSION 10MG/ML 100 ML ONE (19:40)
[2022-01-31] MEDS ORDERED: ALBUMIN 25% 25GM 100ML 100 ML ONE (19:43)
[2022-01-31] MEDS ORDERED: ALBUMIN 25% 25GM 100ML 100 ML IV ONE (19:45)
[2022-01-31 20:05] LABS: BASOPHILS # (AUTO) 0.1 (0.0-0.1); BASOPHILS % 0.1 % (0.0-1.0); EOSINOPHILS # (AUTO) 0.1 (0.0-0.4); EOSINOPHILS % 0.1 % (0.0-6.0); HEMATOCRIT 38.5 % (34.2-44.1); HEMOGLOBIN 11.8 g/dL (12.0-16.0); LYMPHOCYTES # (AUTO) 6.6 (1.0-3.2); LYMPHOCYTES % 9.4 % (18.0-39.1); MEAN CORPUSCULAR HEMOGLOBIN 26.9 pg (28-32); MEAN CORPUSCULAR HGB CONC 30.6 g/dL (31-35); MEAN CORPUSCULAR VOLUME 87.7 fL (81-99); MONOCYTES # (AUTO) 2.8 (0.2-0.8); MONOCYTES % 3.9 % (4.4-11.3); NEUTROPHILS # (AUTO) 51.8 (2.1-6.9); NEUTROPHILS % 73.8 % (38.7-80.0); PLATELET COUNT 188 x10e3/uL (140-360); RED BLOOD COUNT 4.39 x10e6/uL (3.6-5.1); RED CELL DISTRIBUTION WIDTH 20.2 % (11.7-14.4)
[2022-01-31] MEDS ORDERED: SODIUM BICARBONATE 8.4% INJ 50 ML SYR IV STA ×2 (20:19→23:24)
[2022-01-31] MEDS ORDERED: SODIUM BICARBONATE 8.4% SYRING 150 ML in DEXTROSE 5% 1,000 ML IV SCH (20:25)
[2022-01-31] MEDS ORDERED: SODIUM BICARBONATE 8.4% ONE (20:25)
[2022-01-31] MEDS ORDERED: DEXTROSE 5% 1,000 ML IV ONE (20:26)
[2022-01-31 21:07] LABS: ABG HCO3 13 mmol/L (22-26); ABG PCO2 36 mmHg (35-45); ABG PH 7.18 (7.35-7.45); ABG PO2 72 mmHg (80-105); ABG TCO2 15
[2022-01-31] MEDS ORDERED: SODIUM CHLORIDE 0.9% 250ML 250 ML ONE (21:54)
[2022-01-31 22:59] LABS: ALBUMIN 1.9 g/dL (3.5-5.0); ALBUMIN/GLOBULIN RATIO 0.7 (0.8-2.0); CALCIUM 7.2 mg/dL (8.4-10.2); CREATININE, SERUM 1.22 mg/dL (0.57-1.11)
[2022-01-31 23:00] LABS: ANION GAP 23.9 mmol/L (8-16); POTASSIUM 5.9 mmol/L (3.5-5.1)
[2022-01-31 23:01] LABS: CREATINE KINASE MB 4.1 ng/mL (0-4.3)
[2022-01-31] MEDS ORDERED: DEXTROSE 50% SYRINGE 50 ML IV STA (23:24)
[2022-01-31] MEDS ORDERED: CALCIUM CHLORIDE 10% 1.36 MEQ/ML 10ML SYR IV STA (23:24)
[2022-01-31] MEDS ORDERED: ALBUTEROL SULF 0.083% NEB SOLN 3 ML NEB NEB STA (23:24)
[2022-01-31] MEDS ORDERED: SODIUM BICARBONATE 8.4% SYRING 50 ML ONE (23:29)
[2022-01-31] MEDS ORDERED: SOD POLYSTYRENE SULFONATE SUSP 15 GM/60 ML BTL NG ONE (23:30)
[2022-01-31] MEDS ORDERED: INSULIN REGULAR, HUMAN 100 UNIT/1 ML ONE (23:30)
[2022-01-31] MEDS ORDERED: INSULIN REGULAR, HUMAN 100 UNIT/1 ML IV ONE (23:30)
[2022-01-31] MEDS ORDERED: SOD POLYSTYRENE SULFONATE SUSP 15 GM/60 ML BTL ONE (23:31)
[2022-01-31] MEDS ORDERED: ALBUTEROL SULF 0.083% NEB SOLN 3 ML NEB ONE (23:33)
[2022-02-01 00:10] VITALS: BP 35/16
[2022-02-01 00:40] VITALS: BP 57/23
[2022-02-01 01:00] VITALS: BP 34/24
[2022-02-01 01:15] VITALS: BP 48/31
[2022-02-01 01:38] VITALS: BP 45/33
[2022-02-01 01:45] VITALS: BP 0/0
== END 2022-02-01 01:56 | disposition expired | DRG 870 ==
LOC: ER 22:11 → ERHOLD 01-26 00:30 → ICU 01-26 02:59
PROVIDERS: ADMIT Internal Medicine; ATTEND Internal Medicine
PROC: 009U3ZX Drainage of Spinal Canal, Percutaneous Approach, Diagnostic (ICD-10-PCS; principal; 2022-01-26)
PROC: 5A1955Z Respiratory Ventilation, Greater than 96 Consecutive Hours (ICD-10-PCS; 2022-01-26)
PROC: 02HV33Z Insertion of Infusion Device into Superior Vena Cava, Percutaneous Approach (ICD-10-PCS; 2022-01-26)
PROC: 0BH17EZ Insertion of Endotracheal Airway into Trachea, Via Natural or Artificial Opening (ICD-10-PCS; 2022-01-26)
PROC: 3E04329 Introduction of Other Anti-infective into Central Vein, Percutaneous Approach (ICD-10-PCS; 2022-01-29)
PROC: 5A12012 Performance of Cardiac Output, Single, Manual (ICD-10-PCS; 2022-01-31)
PROC: 3E043XZ Introduction of Vasopressor into Central Vein, Percutaneous Approach (ICD-10-PCS; 2022-01-31)
DX: A40.9 Streptococcal sepsis, unspecified (principal); J69.0 Pneumonitis due to inhalation of food and vomit; G93.41 Metabolic encephalopathy; I21.A1 Myocardial infarction type 2; R65.21 Severe sepsis with septic shock; G04.2 Bacterial meningoencephalitis and meningomyelitis, not elsewhere classified; J13 Pneumonia due to Streptococcus pneumoniae; J14 Pneumonia due to Hemophilus influenzae; J96.01 Acute respiratory failure with hypoxia; N17.9 Acute kidney failure, unspecified; E87.0 Hyperosmolality and hypernatremia; I50.32 Chronic diastolic (congestive) heart failure; I13.0 Hypertensive heart and chronic kidney disease with heart failure and stage 1 through stage 4 chronic kidney disease, or unspecified chronic kidney disease; I46.9 Cardiac arrest, cause unspecified; Z79.01 Long term (current) use of anticoagulants; F41.9 Anxiety disorder, unspecified; G62.9 Polyneuropathy, unspecified; Z96.651 Presence of right artificial knee joint; G89.4 Chronic pain syndrome; J32.0 Chronic maxillary sinusitis; I48.0 Paroxysmal atrial fibrillation; E83.41 Hypermagnesemia; N18.9 Chronic kidney disease, unspecified; W19.XXXA Unspecified fall, initial encounter; Y92.003 Bedroom of unspecified non-institutional (private) residence as the place of occurrence of the external cause; H04.129 Dry eye syndrome of unspecified lacrimal gland; B00.9 Herpesviral infection, unspecified; E87.5 Hyperkalemia
CPT/HCPCS: 36415; 36569; 36600; 70450; 71045; 72126; 72129; 72132; 74018; 76770; 80053; 80202; 80307; 80320; 80329; 81001; 82140; 82550; 82553; 82805; 82945; 83036; 83605; 83735; 83880; 84100; 84157; 84484; 85025; 85610; 87040; 87070; 87071; 87086; 87186; 87205; 87529; 89051; 93005; 93306; 94003; 94640; 94799; 96361; 99251; 99285; J0171; J0330; J0360; J0692; J0696; J1100; J1650; J1817; J1940; J2060; J3370; J7030; J7050; J7070; J7121; P9047; Q9967; U0002